=== PATIENT | female | born 1950 | race Caucasian/White ===

== ENCOUNTER → 2016-11-14 | Outpatient (CLI) | payer OTHER, BC ==
[~2016-11-14] MED LIST: CALC600T9 PO; MELA1TAB4 PO; METO-217 PO; MULT-506 PO
[2016-11-14 12:24] LABS: ALT/SGPT 22 U/L (12-78); AST/SGOT 19 U/L (15-37); BLOOD UREA NITROGEN 24 mg/dl (7-18); BUN/CREATININE RATIO 32.6 (10-20); CALCIUM 9.2 mg/dl (8.5-10.1); CARBON DIOXIDE 28 mmol/L (21-32); CHLORIDE 105 mmol/L (98-107); CHOLESTEROL 239 mg/dl (0-200); CREATININE 0.72 mg/dl (0.60-1.20); GLUCOSE 92 mg/dl (70-99); POTASSIUM 4.1 mmol/L (3.5-5.1); SODIUM 140 mmol/L (136-145); TRIGLYCERIDES 82 mg/dl (0-150); VERY LOW DENSITY LIPOPROT CALC 16 mg/dl
[2016-11-14 12:27] LABS: HEMATOCRIT 41.6 % (37-47); MEAN CELL VOLUME 96.7 fL (80-100); MEAN CORPUSCULAR HEMOGLOBIN 32.3 pg (25-34); MEAN CORPUSCULAR HGB CONC 33.4 g/dl (32-36); MEAN PLATELET VOLUME 10.9 fL (7.4-10.4); PLATELET COUNT 265 K/uL (130-400)
[2016-11-14 12:34] LABS: ALB/GLOB RATIO 1.1 (0.9-2); ALKALINE PHOSPHATASE 90 U/L (45-117); CHOLESTEROL/HDL RATIO 2.3; HDL CHOLESTEROL 102 mg/dl; LDL CHOLESTEROL CALCULATED 121 mg/dl
== END | disposition home or self-care (01) ==
LOC: C.LABBFT 09:11
PROVIDERS: ATTEND Internal Medicine
DX: I42.9 Cardiomyopathy, unspecified (principal)

== ENCOUNTER → 2016-12-26 | Day surgery (SDC) | payer OTHER, BC ==
[2016-12-19 14:46] VITALS: Ht 168.9 cm; Wt 65.9 kg
[~2016-12-26] VITALS: Ht 168.9 cm; Wt 65.9 kg
[~2016-12-26] MED LIST changes: +LIDOCAINE HCL 2% 2 ML VIAL (20MG/ML) ONE; +MIDAZOLAM HCL 1 MG/ML 2ML VIAL ONE; +ONDANSETRON INJ 2 MG/ML 2 ML VIAL ONE; +PROPOFOL IV EMULSION 10 MG/ML 20 ML VIAL IV ONE; +SODIUM CHLORIDE 0.9% 500ML 500 ML IV ONE
--- NOTE | 2016-12-26 14:50 | Endo History and Physical ---
History & Physical Date of Service: December 26, 2016. Chief Complaint: screening Referring Physician: Dr. Balderas History of Present Illness 66 yo CF who presents for screening colonoscopy. Past Surgical History Hx Cardiac Surgery: No Hx Internal Defibrillator: No Hx Pacemaker: No Hx Abdominal Surgery: Yes (JOSE BSO) Hx of Implantable Prosthesis: No Hx Post-Op Nausea and Vomiting: No Hx Cancer Surgery: No Hx Thoracic Surgery: No Hx Orthopedic: No Hx Urinary Tract Surgery: No Family History Colon CA Social History Smoking Status: Current Every Day Smoker Hx Substance Use: No Hx Alcohol Use: Yes (OCCASIONAL) Allergies Coded Allergies: No Known Allergies (Unverified , 12/26/16) Current Medications Reported Home Medications Medications Dose Route/Sig Max Daily Dose Days Date Category Dose Instructions Melatonin 1 Mg Tab 1 Tab PO HS PRN 12/19/16 Reported Calcium + D (Calcium Carbonate-Vitamin D) 1 Tab Tab 1 Tab PO BID 12/19/16 Reported Multivitamin (Multivitamins) Tab 1 Tab PO QAM 12/19/16 Reported Toprol Xl (Metoprolol Succinate) 50 Mg Tabcr 50 Mg PO QAM 12/19/16 Reported WILL BE GETTING NEW PRESCRIPTION FOR 75MG BUT PT STATES NOT STARTING UNTIL AFTER COLONOSCOPY Vital Signs Weight (Kilograms): 65.91 Height (Feet): 5 Height (Inches): 6.5 Physical Exam General Appearance: WD/WN, no apparent distress Respiratory/Chest: Auscultation: breath sounds normal Cardiovascular: Heart Auscultation: RRR Abdomen: Bowel Sounds: normal Inspection & Palpation: soft, non-distended, no tenderness, guarding & rebound Assessment and Plan Assessment: 66 yo CF who presents for screening colonoscopy. Plan: Proceed with colonoscopy.
--- NOTE | 2016-12-26 15:39 | Discharge Instructions ---
Endoscopy Patient Instructions Date / Procedure(s) Performed December 26, 2016. Colonoscopy Allergy Information Coded Allergies: No Known Allergies (Unverified , 12/26/16) Discharge Date / Findings December 26, 2016. Colon polyps Internal hemorrhoids Medication Instructions OK to resume all medications today as prescribed Reported Home Medications Medications Dose Route/Sig Max Daily Dose Days Date Category Dose Instructions Melatonin 1 Mg Tab 1 Tab PO HS PRN 12/19/16 Reported Calcium + D (Calcium Carbonate-Vitamin D) 1 Tab Tab 1 Tab PO BID 12/19/16 Reported Multivitamin (Multivitamins) Tab 1 Tab PO QAM 12/19/16 Reported Toprol Xl (Metoprolol Succinate) 50 Mg Tabcr 50 Mg PO QAM 12/19/16 Reported WILL BE GETTING NEW PRESCRIPTION FOR 75MG BUT PT STATES NOT STARTING UNTIL AFTER COLONOSCOPY Provider Instructions Activity Restrictions - No exercising or heavy lifting for 24 hours. - Do not drink alcohol the day of the procedure. - Do not drive a car or operate machinery until the day after the procedure. - Do not make any important decisions or sign important papers in 24 hours after the procedure. Following Day: - Return to full activity which may include returning to work/school. Diet Start your diet with liquids and light foods (jello, soup, juice, toast). Then eat your usual diet if not nauseated. Treatment For Common After Affects For mild abdominal pain, bloating, or excessive gas: - Rest - Eat lightly - Lie on right side Follow-Up Information Follow-up with Dr. Balderas as scheduled Anesthesia Information What You Should Know You have had a procedure that required some medicine to reduce anxiety and discomfort. This treatment is called moderate sedation. After receiving the treatment, you may be sleepy, but you will be able to breathe on your own. The effects of the treatment may last for several hours. Follow these instructions along with Activity/Diet recommendations noted above: * Do NOT do anything where dizziness or clumsiness would be dangerous. * Rest quietly at home today, then you can be up and about tomorrow. * Have a responsible person stay with you the rest of today. * You may have had an I.V. today. If so, you may take the dressing off later today. Recommendations Call your doctor if: * Trouble breathing * Continuous vomiting for more than 24 hours * Temperature above 101 degrees * Severe abdominal pain or bloating * Pain not relieved by pain medicine ordered * There is increased drainage or redness from any incision * A large amount of rectal bleeding greater than 2-3 tablespoons. (If you had a polyp/s removed or have hemorrhoids, a small amount of blood - from the rectum is to be expected.) * You have any unanswered questions or concerns. IN THE EVENT OF A SERIOUS EMERGENCY, GO TO THE NEAREST EMERGENCY ROOM Your discharge instructions were prepared by provider Miguel Gamez. Patient Instructions Signature Page Kanchan Lopez Patient (or Guardian) Signature/Date: I have read and understand the instructions given to me by my caregivers. Caregiver/RN/Doctor Signature/Date: The above-named patient and/or guardian has received patient instructions on this date. + Original Patient Signature Page (only) stays with chart. Please make copy for patient.
--- NOTE | 2016-12-26 15:46 | GI REPORT ---
Procedure Date: 12/26/2016 2:59 PM Procedure: Colonoscopy Indications: Screening for colorectal malignant neoplasm Medicines: Monitored Anesthesia Care Complications: No immediate complications. Estimated Blood Loss: Estimated blood loss: none. Procedure: Pre-Anesthesia Assessment: - Prior to the procedure, a History and Physical was performed, and patient medications and allergies were reviewed. The patient's tolerance of previous anesthesia was also reviewed. The risks and benefits of the procedure and the sedation options and risks were discussed with the patient. All questions were answered, and informed consent was obtained. Prior Anticoagulants: The patient has taken no previous anticoagulant or antiplatelet agents. ASA Grade Assessment: II - A patient with mild systemic disease. After reviewing the risks and benefits, the patient was deemed in satisfactory condition to undergo the procedure. After I obtained informed consent, the scope was passed under direct vision. Throughout the procedure, the patient's blood pressure, pulse, and oxygen saturations were monitored continuously. The Scope was introduced through the anus and advanced to the terminal ileum. The colonoscopy was technically difficult and complex due to post-surgical anatomy and restricted mobility of the colon. Successful completion of the procedure was aided by changing the patient to a supine position and applying abdominal pressure. The patient tolerated the procedure well. The quality of the bowel preparation was good. The terminal ileum, ileocecal valve, appendiceal orifice, and rectum were photographed. Findings: Five sessile polyps were found in the sigmoid colon, in the descending colon and in the ascending colon. The polyps were 5 to 8 mm in size. These polyps were removed with a hot snare. Resection and retrieval were complete. Non-bleeding internal hemorrhoids were found during retroflexion. The hemorrhoids were small. Impression: - Five 5 to 8 mm polyps in the sigmoid colon, in the descending colon and in the ascending colon, removed with a hot snare. Resected and retrieved. - Non-bleeding internal hemorrhoids. Recommendation: - Resume previous diet. - Continue present medications. - Repeat colonoscopy for surveillance based on pathology results. - Return to primary care physician as previously scheduled. Miguel Gamez DO 12/26/2016 3:46:32 PM This report has been signed electronically. Note Initiated On: 12/26/2016 2:59 PM I attest to the content of the Intraoperative Record and orders documented therein, exceptions below
[2016-12-26 16:13] VITALS: BP 114/62; PULSE 59; O2SAT 98
--- NOTE | 2016-12-26 16:48 | Anesthesiology Progress Note ---
Anesthesia Post Op Note Date & Time December 26, 2016 at 16:48 Vital Signs Pain Intensity: 0 Vital Signs Past 12 Hours Date Time Temp Pulse Resp B/P Pulse Ox O2 Delivery O2 Flow Rate FiO2 12/26/16 16:13 59 16 114/62 98 Room Air 12/26/16 15:53 59 16 129/59 98 Room Air 12/26/16 15:38 64 16 122/49 95 Room Air 12/26/16 14:48 36.9 65 20 160/75 96 Room Air Notes Mental Status: alert / awake / arousable, participated in evaluation Pt Amnestic to Procedure: Yes Nausea / Vomiting: adequately controlled Pain: adequately controlled Airway Patency, RR, SpO2: stable & adequate BP & HR: stable & adequate Hydration State: stable & adequate Anesthetic Complications: no major complications apparent
== END | disposition home or self-care (01) ==
LOC: C.GI 13:51
PROVIDERS: ATTEND Internal Medicine
DX: Z12.11 Encounter for screening for malignant neoplasm of colon (principal); D12.5 Benign neoplasm of sigmoid colon; D12.4 Benign neoplasm of descending colon; D12.2 Benign neoplasm of ascending colon; K64.8 Other hemorrhoids; E11.22 Type 2 diabetes mellitus with diabetic chronic kidney disease; I12.9 Hypertensive chronic kidney disease with stage 1 through stage 4 chronic kidney disease, or unspecified chronic kidney disease; F17.200 Nicotine dependence, unspecified, uncomplicated; Z80.0 Family history of malignant neoplasm of digestive organs; Z68.23 Body mass index [BMI] 23.0-23.9, adult; Z90.89 Acquired absence of other organs; N18.9 Chronic kidney disease, unspecified

== ENCOUNTER → 2017-02-09 | Outpatient (CLI) | payer OTHER, BC ==
[~2017-02-09] MED LIST changes: -LIDOCAINE HCL 2% 2 ML VIAL (20MG/ML) ONE; -MIDAZOLAM HCL 1 MG/ML 2ML VIAL ONE; -ONDANSETRON INJ 2 MG/ML 2 ML VIAL ONE; -PROPOFOL IV EMULSION 10 MG/ML 20 ML VIAL IV ONE; -SODIUM CHLORIDE 0.9% 500ML 500 ML IV ONE
--- NOTE | 2017-02-09 16:20 | MAMMOGRAPHY REPORT ---
BILATERAL DIGITAL SCREENING MAMMOGRAM TOMOSYNTHESIS WITH CAD: 02/09/2017 CLINICAL HISTORY: Routine screening. Patient has no complaints. TECHNIQUE: Breast tomosynthesis in addition to standard 2D mammography was performed. Current study was also evaluated with a Computer Aided Detection (CAD) system. COMPARISON: Comparison is made to exams dated: 02/03/2016 mammogram - [facility], mammogram, 10/07/2013 mammogram, 04/15/2013 mammogram, 10/12/2012 mammogram, and 10/03/2012 mammogr am - [facility]. BREAST COMPOSITION: The tissue of both breasts is heterogeneously dense, which may obscure small mas ses. FINDINGS: There are a few benign-appearing calcifications bilaterally. No new suspicious mass, archi tectural distortion or cluster of microcalcifications is seen. IMPRESSION: ACR BI-RADS CATEGORY 1: NEGATIVE There is no mammographic evidence of malignancy. A 1 year screening mammogram is recommended. The pa tient will receive written notification of the results. Approximately 10% of breast cancers are not detected with mammography. A negative mammographic report should not delay biopsy if a clinically suggestive mass is present. Bella Saravia M.D. ay/:02/09/2017 13:56:46 Valve Pipe Irrigator: Judy VAUGHN(Dami)(Nishant)(BD), [facility] letter sent: Normal 1/2 BI-RADS Code: ACR BI-RADS Category 1: Negative
== END | disposition home or self-care (01) ==
LOC: C.MAMM 09:01
PROVIDERS: ATTEND Internal Medicine
DX: Z12.31 Encounter for screening mammogram for malignant neoplasm of breast (principal)

== ENCOUNTER → 2017-11-16 | Outpatient (CLI) | payer OTHER, BC ==
[2017-11-16 12:35] LABS: HEMATOCRIT 41.5 % (37-47); MEAN CORPUSCULAR HEMOGLOBIN 33.4 pg (25-34); MEAN CORPUSCULAR HGB CONC 33.7 g/dl (32-36); PLATELET COUNT 285 K/uL (130-400); RED CELL DISTRIBUTION WIDTH SD 50.5 fL (36.4-46.3); WHITE BLOOD COUNT 10.86 K/uL (4.8-10.8)
[2017-11-16 13:32] LABS: ALBUMIN 4.1 gm/dl (3.4-5.0); ALT/SGPT 28 U/L (12-78); BLOOD UREA NITROGEN 23 mg/dl (7-18); CALCIUM 9.6 mg/dl (8.5-10.1); CARBON DIOXIDE 26 mmol/L (21-32); CHOLESTEROL 250 mg/dl (0-200); CREATININE 0.74 mg/dl (0.60-1.20); GLUCOSE 97 mg/dl (70-99); POTASSIUM 4.3 mmol/L (3.5-5.1); SODIUM 137 mmol/L (136-145)
[2017-11-16 13:42] LABS: ALKALINE PHOSPHATASE 85 U/L (45-117); AST/SGOT 21 U/L (15-37); LDL CHOLESTEROL CALCULATED 134 mg/dl; TOTAL PROTEIN 7.6 gm/dl (6.4-8.2)
== END | disposition home or self-care (01) ==
LOC: C.LABBFT 09:53
PROVIDERS: ATTEND Physician Assistant Medical
DX: I42.2 Other hypertrophic cardiomyopathy (principal)

== ENCOUNTER 2025-07-16 00:24 | Inpatient (IN) ==
--- NOTE | 2025-07-16 00:53 | Emergency Department Note ---
Impression & Plan Closed left humeral fracture Admission ED Provider Note HPI: History obtained from patient. The patient is a 75-year-old female who presents the emergency department with chief complaint of pain in her left shoulder after a fall earlier this evening. Patient states that she was drinking some alcohol earlier this evening and she went into her bathroom in [facility] and slipped backwards and fell onto her left arm. Patient denies hitting her head, she states that she does have pain in left shoulder on arrival. Patient is noted to have an arm sling on the right side, she states she actually had a fall just around [facility] and fractured the proximal aspect of her right humerus. On arrival here to the ED the patient is alert, she is intoxicated but answers my questions appropriately. She otherwise appears to be in no acute distress. ROS: - Per HPI Differential Diagnosis: Left shoulder dislocation, humerus fracture, scapular fracture, clavicle fracture, AC joint separation, rib fractures, pneumothorax, amongst other potential pathologies. *Outpatient medications and allergy history reviewed. PE: General: Alert, intoxicated, no acute distress HEENT: Normocephalic, trachea midline Eyes: Extraocular eye movement is intact, no scleral erythema Pulmonary: Clear to auscultation bilaterally, no wheezing Cardio: Regular rate and rhythm GI: Abdomen is soft to palpation : No suprapubic tenderness MSK: There is no range of motion of the left shoulder secondary to pain, otherwise no evidence of trauma or malformation of the extremities, no edema Skin: No evidence of rash Neuro: Alert, no focal deficits Psychiatric: Intoxicated, overall cooperative INDEPENDENT INTERPRETATIONS: monitoring and evaluation advisor: (As interpreted by myself): - An order was placed for continuous cardiac monitoring - Patient was noted to be in sinus rhythm with a rate of 72 Chest x-ray: (As interpreted by myself): No acute disease Interventions provided in ED: - IV fluid bolus Medical Decision Making: X-ray imaging of the left shoulder confirms evidence of a displaced transverse fracture of the proximal left humerus. Patient already has a fracture of her right humerus and is in an arm sling. She is at [facility]. I discussed the patient's presentation and fracture with on-call orthopedics, Berlin Uriarte PA-C, he does recommend admission as the patient will require operative repair. IV was established and the patient was given IV fluids, lab work was obtained that shows evidence of a leukocytosis which is likely reactive, otherwise hemoglobin is stable, platelet count is normal, CMP does not show any evidence of any critical findings. Patient is in agreement for admission, [facility] hospitalist service was consulted for admission and the patient was placed for admission in stable condition. Consultants/Discussions held with other healthcare providers: - Orthopedics, Dr. Arias/Berlin Uriarte PA-C - Hospitalist, Dr. Horan Disposition discussion held by myself with: - Patient Diagnosis: 1. Transverse fracture of the proximal left humerus, acute 2. Mechanical fall, acute 3. Right proximal humerus fracture, subacute 4. Alcohol intoxication, acute Disposition: Admission Don Collado DO Emergency Medicine Past Med/Surg History Problem List (Updated 07/16/25 @ 03:03 by Don Collado DO) Closed left humeral fracture (Acute) Closed fracture of right proximal humerus (07/01/25) Pt notes she caught her foot on something and fell in the parking lot causing injury to her right shoulder. Fracture of greater tuberosity of right humerus (07/01/25) Pt notes she caught her foot on something and fell in the parking lot causing injury to her right shoulder. Osteoporosis Cigarette smoker History of foot fracture (09/13/21) mildly displaced fracture of the base of the first metatarsal, left foot Hyperlipidemia Hypertension Arteriosclerosis of carotid artery (Acute) Cardiomyopathy, hypertrophic (Acute) Colon polyps (Acute) Internal hemorrhoids (Acute) Mitral regurgitation (Acute) Murmur (Acute) Surgical History History of colonoscopy History of hysterectomy Family History (Updated 05/31/24 @ 09:27 by Marylin Stallings) Mother Breast cancer Cerebral atherosclerosis Unknown Bipolar I disorder, single manic episode, severe with psychotic features Bipolar disorder Depression Brother Suicide Father Suicide Denies family history of Ovarian cancer Prostate cancer Coronary heart disease Myocardial infarction Colorectal cancer Social History (Updated 05/31/24 @ 09:29 by Marylin Stallings) Smoking Status: Current every day smoker Tobacco Type: Cigarettes Age Started Using Tobacco: 19; packs per day: 0.5; Cigarettes Per Day: 10; Second Hand Exposure: Yes; Do You Dip or Chew Tobacco: No; Hx Alcohol Use: Yes Alcohol type: beer and other Alcohol Intake Frequency: 4 or More x per/Week Hx Substance Use: No Preferred Language: Singaporean Visual Impairment: No Limitations Hearing Ability: Normal Biztalk Software Developer Required: No Beliefs That Will Affect Care: None marital status: / Current Living Situation: Alone current occupational status: retired Feels Safe at Home: Yes Diet: regular caffeine: Yes (1/2 c. coffee daily) during the past year weight has: remained stable Dental Care, Regularly: Yes Physical Activity Frequency: Daily Physical Activity Frequency Comment: walk Seatbelt Use: always Sunscreen Use: Yes Assistive Devices: Glasses Allergies Allergies Allergy/AdvReac Type Severity Reaction Status Date / Time No Known Drug Allergies Allergy Unknown Verified 07/16/25 01:44 Home Meds Home Medications Medication Instructions Recorded Confirmed [id number] 8 mg-folic 400 1 tab PO DAILY 02/14/19 07/16/25 mcg-K 50 mcg-lutein 300 mcg tablet (Centrum Silver Women) ascorbate calcium (vitamin C) 500 500 mg PO DAILY 01/07/20 07/16/25 mg tablet calcium carbonate 1,000 mg PO DAILY 01/07/20 07/16/25 melatonin 1 mg tablet 1 mg PO HS 01/05/21 07/16/25 Previous Rx's Medication Instructions Recorded metoprolol succinate 100 mg 100 mg PO DAILY #90 tabs 12/03/24 tablet,extended release 24 hr atorvastatin 20 mg tablet 20 mg PO DAILY #90 tabs 02/24/25 amlodipine 5 mg tablet 5 mg PO DAILY #90 tabs 02/25/25 Results & Data (ED) Vital Signs Vital Signs - 24 hr 07/16/25 00:30 07/16/25 01:30 07/16/25 02:57 Temperature 36.6 C Temperature Source Oral Pulse Rate 66 67 Pulse Rate [Apical] 70 Respiratory Rate 16 16 16 Blood Pressure 147/68 H Blood Pressure [Left Arm] 137/63 Blood Pressure Mean 94 Blood Pressure Mean [Left Arm] 87 Pulse Oximetry 96 94 93 Oxygen Delivery Method Room Air Room Air Room Air Sepsis Recent Fever Within 48 Hours No Sepsis New/Unexplained Change in Mental Status No Sepsis Action Taken by Nursing No Action Required Laboratory Data 07/16/25 01:22 07/16/25 01:22 Lab Results 07/16/25 Range/Units 01:22 WBC 18.10 H (4.8-10.8) K/ul RBC 3.27 L (4.20-5.40) M/uL Hgb 11.0 L (12.0-16.0) g/dL Hct 32.1 L (37.0-47.0) % MCV 98.2 (80.0-100.0) fL MCH 33.6 (25.0-34.0) pg MCHC 34.3 (32.0-36.0) g/dL RDW Std Deviation 46.3 (36.4-46.3) fL RDW Coeff of Tanya 13.0 (11.5-14.5) % Plt Count 365 (130-400) K/uL MPV 9.9 (9.4-12.4) fL Immature Gran % (Auto) 0.5 % Neut % (Auto) 85.0 % Lymph % (Auto) 8.6 % Garfield % (Auto) 4.9 % Eos % (Auto) 0.6 % Baso % (Auto) 0.4 % Neut # (Auto) 15.38 H (1.40-6.50) K/uL Lymph # (Auto) 1.56 (1.20-3.40) K/uL Garfield # (Auto) 0.88 H (0.11-0.59) K/uL Eos # (Auto) 0.11 (0.00-0.50) K/uL Baso # (Auto) 0.08 (0.00-0.20) K/uL Immature Gran # (Auto) 0.09 (0.01-0.20) K/uL PT 10.2 (9.0-12.0) Seconds INR 1.0 (0.9-1.1) Sodium 139 (136-145) mmol/L Potassium 3.3 L (3.5-5.1) mmol/L Chloride 104 (98-107) mmol/L Carbon Dioxide 22 (21-32) mmol/L Anion Gap 13 H (3-11) BUN 21 (6-23) mg/dl Creatinine 0.62 (0.6-1.2) mg/dl Est Cr Clr Drug Dosing 74.5 ml/min eGFR 93.39 BUN/Creatinine Ratio 33.9 H (10-20) Glucose 116 H (70-99(Fasting)) mg/dl Calcium 9.7 (8.6-10.3) mg/dl Total Bilirubin 0.3 (0.2-1.0) mg/dl AST 20 (13-39) U/L ALT 14 (7-52) U/L Alkaline Phosphatase 66 (34-104) U/L Total Protein 6.7 (6.0-8.3) gm/dl Albumin 4.0 (3.4-5.0) gm/dl Globulin 2.7 (2.5-4.0) gm/dl Albumin/Globulin Ratio 1.5 (0.9-2) Administered Medications Discontinued Medications Sodium Chloride (Nss) 1,000 mls @ 999 mls/hr IV .Q1H1M STA Stop: 07/16/25 02:22 Last Admin: 07/16/25 01:39 Dose: 999 mls/hr Documented By: sari Imaging Data Radiologist's Impression: Shoulder X-Ray 07/16/25 00:45 EXAM: XR shoulder LT min 2V routine CLINICAL HISTORY: shoulder pain TECHNIQUE: X-ray images of the left shoulder were obtained in anteroposterior (AP) and Y-view projections. COMPARISON: No prior studies available for comparison. FINDINGS: Bone Structure: Displaced fracture of the surgical neck of the humerus with associated non-displaced fracture of the greater tuberosity. Joint Spaces: Glenohumeral and acromioclavicular joint spaces are normal. Possible mild glenohumeral joint effusion. Soft Tissues: Soft tissue edema of the tissues overlying the fracture. Additional Findings: No signs of osteoarthritis, bone spurs, lytic or sclerotic lesions. IMPRESSION: Displaced fracture of the surgical neck of the humerus with associated non-displaced fracture of the greater tuberosity. (3-part fracture according to Neer classification). Soft tissue edema of the tissues overlying the fracture. Possible mild glenohumeral joint effusion. Disclaimer: A subtle bone abnormality or fracture may not be readily apparent on X-rays; thus, clinical correlation and further imaging, including follow-up CT, MRI, or follow-up X-rays, are advised as needed. Electronically signed by Yfn Perez 07-16-2025 01:59 AM Discharge Plan Visit Data Chief Complaint: Shoulder Pain Stated Complaint: L SHOULDER PAIN +ETOH ED Provider: Don Collado Discharge Problem: Closed left humeral fracture Patient Disposition: Admitted As Inpatient Condition: Fair Forms Stand Alone Forms: [facility] [place] Prescriptions Prescriptions: No Action metoprolol succinate 100 mg tablet extended release 24 hr 100 mg PO DAILY Qty: 90 3RF atorvastatin 20 mg tablet 20 mg PO DAILY Qty: 90 3RF amlodipine 5 mg tablet 5 mg PO DAILY Qty: 90 3RF calcium carbonate 500 mg calcium (1,250 mg) tablet 1,000 mg PO DAILY Centrum Silver Women 8 mg iron-400 mcg-300 mcg tablet 1 tab PO DAILY ascorbate calcium (vitamin C) 500 mg tablet 500 mg PO DAILY melatonin 1 mg tablet 1 mg PO HS Referrals Referrals: Daiana Razo MD [Primary Care Provider] - Discharge Problem: Closed left humeral fracture Qualifiers: Encounter type: initial encounter Humerus Location: proximal Fracture morphology: unspecified fracture morphology Qualified Code(s): S42.202A - Unspecified fracture of upper end of left humerus, initial encounter for closed fracture
[2025-07-16] MEDS: SODIUM CHLORIDE 0.9% 1,000 ML IV STA (01:39)
[2025-07-16 01:59] LABS: Hematocrit (blood only) 32.1 % (37.0-47.0); Hemoglobin 11.0 g/dL (12.0-16.0); Immature Granulocytes # (auto) 0.09 K/uL (0.01-0.20); Immature Granulocytes % (auto) 0.5 %; Mean Corpuscular Hemoglobin 33.6 pg (25.0-34.0); Mean Corpuscular Volume 98.2 fL (80.0-100.0); Platelet Count 365 K/uL (130-400); RDW Standard Deviation 46.3 fL (36.4-46.3); Red Blood Count 3.27 M/uL (4.20-5.40); White Blood Count 18.10 K/ul (4.8-10.8)
--- NOTE | 2025-07-16 01:59 | XRay Report ---
EXAM: XR shoulder LT min 2V routine CLINICAL HISTORY: shoulder pain TECHNIQUE: X-ray images of the left shoulder were obtained in anteroposterior (AP) and Y-view projections. COMPARISON: No prior studies available for comparison. FINDINGS: Bone Structure: Displaced fracture of the surgical neck of the humerus with associated non-displaced fracture of the greater tuberosity. Joint Spaces: Glenohumeral and acromioclavicular joint spaces are normal. Possible mild glenohumeral joint effusion. Soft Tissues: Soft tissue edema of the tissues overlying the fracture. Additional Findings: No signs of osteoarthritis, bone spurs, lytic or sclerotic lesions. IMPRESSION: Displaced fracture of the surgical neck of the humerus with associated non-displaced fracture of the greater tuberosity. (3-part fracture according to Neer classification). Soft tissue edema of the tissues overlying the fracture. Possible mild glenohumeral joint effusion. Disclaimer: A subtle bone abnormality or fracture may not be readily apparent on X-rays; thus, clinical correlation and further imaging, including follow-up CT, MRI, or follow-up X-rays, are advised as needed. Electronically signed by Yfn Perez 07-16-2025 01:59 AM
[2025-07-16 02:17] LABS: Alanine Aminotransferase 14.0 U/L (7-52); Albumin Globulin Ratio 1.5 (0.9-2); Albumin Level 4.0 gm/dl (3.4-5.0); Alkaline Phosphatase 66.0 U/L (34-104); Anion Gap 13.0 (3-11); Bilirubin,Total 0.3 mg/dl (0.2-1.0); Blood Urea Nitrogen 21.0 mg/dl (6-23); Calcium 9.7 mg/dl (8.6-10.3); Carbon Dioxide 22.0 mmol/L (21-32); Chloride 104.0 mmol/L (98-107); Creatinine Clr Calc Pharmacy 74.5 ml/min; Globulin 2.7 gm/dl (2.5-4.0); Glucose 116.0 mg/dl (70-99(Fasting)); Potassium 3.3 mmol/L (3.5-5.1); Sodium 139.0 mmol/L (136-145); Total Protein 6.7 gm/dl (6.0-8.3)
[2025-07-16 02:31] LABS: INR 1.0 (0.9-1.1); Prothrombin Time 10.2 Seconds (9.0-12.0)
--- NOTE | 2025-07-16 03:23 | History & Physical Report ---
Date of Service July 16, 2025 Assessment & Plan (1) Closed left humeral fracture: (2) Alcohol use: (3) Hypokalemia: (4) Leukocytosis: (5) Anemia: Plan 75-year-old female PMHx closed fx of R proximal humerus and greater tuberosity of humerus (07/01/2025), OP, HLD, HTN, HCM, and MR presenting for fall and associated L shoulder pain occurring the day of arrival. Her evaluation does reveal leukocytosis 18k, with hypokalemia (3.3) and AG of 13. Her imaging is significant for L sided fracture of greater tuberosity of humerus with possible joint effusion. #L humerus fracture Mechanical fall the day of arrival, landed on L shoulder. Reports that she had been drinking alcohol. H/o OP, with prior fractures in chart. - CBC leukocytosis 18k, H/H 11.0/32.1, plt stable; PT/INR WNL; vitamin D level pending - EKG pending - CXR pending official read - L shoulder XR nondisplaced fracture of greater tuberosity of humerus with possible glenohumeral joint effusion - NPO now - IVF LR @ 80 mL/hr - Zofran prn N/V - Acetaminophen prn fever/pain, morphine prn severe pain - Ortho consulted - appreciate input + recs - PT/OT consulted - appreciate assistance #Alcohol use Reports drinking 1 "small glass" of scotch per night, mainly every night. Neighbor arrival she did have 2 small glasses which were mixed with water and ice. No history of withdrawals. PAWS score currently 0 (pending alcohol level). - AG 13, LFTs WNL, alcohol level pending - AWSS at admission, can discontinue as appropriate - Thiamine 100 mg IV + folate 1 mg IV am - Ativan as ordered, as needed #Hypokalemia Asx at present. - K 3.3, Mg 2 - BMP am - KCl 20 mEq IV now - EKG pending #Leukocytosis No infectious symptoms at present; Denies cough, F/c, URI sx, LUTS, N/V/D. - CBC leukocytosis 18.1, elevated neutrophils - CBC am - CXR pending official read - UA pending - Deferred abx at time of admission - no clear source of infection, ? inflammatory response to fracture/stress in body #Anemia Slightly decreased H/H from baseline; pt denies active bleeding. She is clinically dry, could be concentration issue vs sergio anemia. H/o alcohol ingestion, routinely. - H/H . - trend as appropriate - Iron panel, ferritin, vitamin B12, folate pending #Nicotine dependence- Has cut back significantly, smokes approximately 3 to 4 cigarettes/day with meals. Encouraged sensation, which the patient is interested in - nicotine patch prn #HTN- Amlodipine, metoprolol - continue #HLD- Atorvastatin - continue Dispo: Admit, med/sx VTE Prophylaxis: SCDs This document was dictated utilizing [employer]. Please excuse any grammatical errors that may be secondary to use of this software. Admission and Anticipated Discharge Date Admission Date: 07/16/2025 History of Present Illness Chief Complaint: Shoulder pain Primary Care Provider: Daiana Razo MD 75-year-old female PMHx closed fx of R proximal humerus and greater tuberosity of humerus (07/01/2025), OP, HLD, HTN, HCM, and MR presenting for fall and associated L shoulder pain occurring the day of arrival. Patient states that around the time of she was with her [id number] when they were outside walking and she tripped off of a curb while it was raining, landing on her right arm and sustaining a fracture. She was then sent to [facility] for rehabilitation but she is right-hand dominant and needed assistance given her injury. While at [facility], she has been having approximately 1 glass of liquor per night. The night of arrival, around [id number], she had finished 2 glasses of scotch mixed with water (she holds up her hand to demonstrate small glasses that resemble the size of shot glasses). She got up with only her socks on and walked to the bathroom when she then slipped on the vinyl floor and fell onto her left side, falling backwards. She did not hit her head. Not on blood thinners. At present, the pain in her L arm is a 5 out of 10 on the pain scale, but manageable. She is not having any numbness or tingling, no shooting pain elsewhere. She denies any symptoms prior to the fall to include chest pain, dizziness, SOB, or syncope. She admits to drinking almost nightly, around a shot glass amount of liquor mixed with water. Denies blackouts, history of withdrawals, seizures, or inpatient treatment for alcohol use. She does smoke cigarettes, approximately 3-4/day. She has been having more stressors recently as she has been a since 2013, and her mother just recently passed in June at the age of 103 years old. Patient states that there have just been changes in her life that she is dealing with and she was feeling sad the night of arrival which is why she had 2 glasses of alcohol instead of 1. She denies any chest pain, SOB, palpitations, abdominal pain, N/V/D/C, numbness/tingling, fever/chills, URI symptoms, LUTS, weakness, or syncope. Her RUE has been healing appropriately, she states that the pain in this arm is manageable. ED evaluation reveals CBC with leukocytosis 18.10, H/H 11.0/32.1, plt stable; PT/INR WNL; CMP K 3.3, AG 13, ratio 33.9, glucose 116; L shoulder XR displaced fracture of surgical neck of humerus with associated non-displaced fx greater tuberosity, soft tissue edema overlying fx, possible glenohumeral joint effusion; CXR pending official read.; Provided with 1L NSS in ED. Please see Dr. Horan attestation for adjustments/additions to treatment plan. Allergies Allergy/AdvReac Type Severity Reaction Status Date / Time No Known Drug Allergies Allergy Unknown Verified 07/16/25 01:44 Home Medications Medication Instructions Recorded Confirmed Type [id number] 8 mg-folic 400 1 tab PO DAILY 02/14/19 07/16/25 History mcg-K 50 mcg-lutein 300 mcg tablet (Centrum [place]) ascorbate calcium (vitamin C) 500 500 mg PO DAILY 01/07/20 07/16/25 History mg tablet calcium carbonate 1,000 mg PO DAILY 01/07/20 07/16/25 History melatonin 1 mg tablet 1 mg PO HS 01/05/21 07/16/25 History metoprolol succinate 100 mg 100 mg PO DAILY #90 tabs 12/03/24 07/16/25 Rx tablet,extended release 24 hr atorvastatin 20 mg tablet 20 mg PO DAILY #90 tabs 02/24/25 07/16/25 Rx amlodipine 5 mg tablet 5 mg PO DAILY #90 tabs 02/25/25 07/16/25 Rx Past Med/Surg History Problem List (Updated 07/16/25 @ 08:04 by Al Moralez LPN) Anemia Leukocytosis Hypokalemia Alcohol use Closed left humeral fracture (Acute 07/15/25) Displaced fracture of the surgical neck of the left humerus with associated non-displaced fracture of the greater tuberosity from a fall. Closed fracture of right proximal humerus (07/01/25) Pt notes she caught her foot on something and fell in the parking lot causing injury to her right shoulder. Fracture of greater tuberosity of right humerus (07/01/25) Pt notes she caught her foot on something and fell in the parking lot causing injury to her right shoulder. Osteoporosis Cigarette smoker History of foot fracture (09/13/21) mildly displaced fracture of the base of the first metatarsal, left foot Hyperlipidemia Hypertension Arteriosclerosis of carotid artery (Acute) Cardiomyopathy, hypertrophic (Acute) Colon polyps (Acute) Internal hemorrhoids (Acute) Mitral regurgitation (Acute) Murmur (Acute) Surgical History History of colonoscopy History of hysterectomy Family History Mother Breast cancer Cerebral atherosclerosis Unknown Bipolar I disorder, single manic episode, severe with psychotic features Bipolar disorder Depression Brother Suicide Father Suicide Denies family history of Ovarian cancer Prostate cancer Coronary heart disease Myocardial infarction Colorectal cancer Social History Smoking Status: Current every day smoker Tobacco Type: Cigarettes Age Started Using Tobacco: 19; packs per day: 0.5; Cigarettes Per Day: 3; Second Hand Exposure: No; Do You Dip or Chew Tobacco: No; Tobacco Cessation Education Requested by Patient: No Hx Alcohol Use: Yes Alcohol type: hard liquor Alcohol Intake Frequency: 4 or More x per/Week Hx Substance Use: No Preferred Language: Surinamese Communication Ability: Effective Visual Impairment: No Limitations Hearing Ability: Normal [employer] Required: No Beliefs That Will Affect Care: None marital status: / Current Living Situation: Alone current occupational status: retired Other Information That Helps Us Care for You: No Feels Safe at Home: Yes Safety Concerns: Feels Safe At This Time Diet: regular caffeine: Yes (1/2 c. coffee daily) during the past year weight has: remained stable Dental Care, Regularly: Yes Physical Activity Frequency: Daily Physical Activity Frequency Comment: walk Seatbelt Use: always Sunscreen Use: Yes Assistive Devices: Denture - Upper and Glasses Assistive Devices Comment: Upper partial Review of Systems Review of Systems: All systems reviewed & are unremarkable except as noted in Subjective Physical Exam Physical Exam: General: No acute distress Skin: Warm and dry Head: Normocephalic, atraumatic Eyes: PERRL, conjunctivae clear, sclera non-icteric; wearing glasses ENT: External ear and ear canal without swelling; nose atraumatic; good dentition, tongue normal appearance, pharynx normal Neck: Supple, no LAD Cardio: RRR, no M/G/R, S1 and S2 normal Resp: No respiratory distress, Lungs CTA in all lobes bilaterally, no wheezes, rales, or rhonchi Abdomen: Soft, symmetric, nontender; No masses or hepatosplenomegaly; Bowel sounds normoactive MSK: RUE in sling, appropriate ROM; LUE resting at side, limited ROM,; pulses palpable and equal; no edema. Neuro: Awake, alert; Sensation intact bilaterally; CN grossly intact Psych: Appropriate mood and affect; good judgement and insight. Results & Data Results & Data Vital Signs (Past 12 Hours) Vital Signs Temp Pulse Pulse Resp BP BP Pulse Ox 07/16/25 02:57 70 16 137/63 93 07/16/25 01:30 67 16 94 07/16/25 00:30 36.6 C 66 16 147/68 H 96 O2 Del Method 07/16/25 02:57 Room Air 07/16/25 01:30 Room Air 07/16/25 00:30 Room Air Laboratory Results 07/16/25 01:22 WBC 18.10 H RBC 3.27 L Hgb 11.0 L Hct 32.1 L MCV 98.2 MCH 33.6 MCHC 34.3 RDW Std Deviation 46.3 RDW Coeff of Tanya 13.0 Plt Count 365 MPV 9.9 Immature Gran % (Auto) 0.5 Neut % (Auto) 85.0 Lymph % (Auto) 8.6 Mitchell % (Auto) 4.9 Eos % (Auto) 0.6 Baso % (Auto) 0.4 Neut # (Auto) 15.38 H Lymph # (Auto) 1.56 Mitchell # (Auto) 0.88 H Eos # (Auto) 0.11 Baso # (Auto) 0.08 Immature Gran # (Auto) 0.09 PT 10.2 INR 1.0 Sodium 139 Potassium 3.3 L Chloride 104 Carbon Dioxide 22 Anion Gap 13 H BUN 21 Creatinine 0.62 Est Cr Clr Drug Dosing 74.5 eGFR 93.39 BUN/Creatinine Ratio 33.9 H Glucose 116 H Calcium 9.7 Total Bilirubin 0.3 AST 20 ALT 14 Alkaline Phosphatase 66 Total Protein 6.7 Albumin 4.0 Globulin 2.7 Albumin/Globulin Ratio 1.5 Diagnostic Findings Shoulder X-Ray 07/16/25 00:45 EXAM: XR shoulder LT min 2V routine CLINICAL HISTORY: shoulder pain TECHNIQUE: X-ray images of the left shoulder were obtained in anteroposterior (AP) and Y-view projections. COMPARISON: No prior studies available for comparison. FINDINGS: Bone Structure: Displaced fracture of the surgical neck of the humerus with associated non-displaced fracture of the greater tuberosity. Joint Spaces: Glenohumeral and acromioclavicular joint spaces are normal. Possible mild glenohumeral joint effusion. Soft Tissues: Soft tissue edema of the tissues overlying the fracture. Additional Findings: No signs of osteoarthritis, bone spurs, lytic or sclerotic lesions. IMPRESSION: Displaced fracture of the surgical neck of the humerus with associated non-displaced fracture of the greater tuberosity. (3-part fracture according to Neer classification). Soft tissue edema of the tissues overlying the fracture. Possible mild glenohumeral joint effusion. Disclaimer: A subtle bone abnormality or fracture may not be readily apparent on X-rays; thus, clinical correlation and further imaging, including follow-up CT, MRI, or follow-up X-rays, are advised as needed. Electronically signed by Yfn Perez 07-16-2025 01:59 AM Medications Administered 1l NSS Code Status & VTE Plan Code Status Full Supervising Physician Co-Signing Physician Notes Attending addendum: I have physically seen this patient, have supervised the ANITA's activities, and agree with the H&P unless as otherwise noted. Assessment and Plan: The patient is a 75-year-old female with past medical history including closed fracture of right proximal humerus and greater tuberosity on 07/01/2025, OP, hyperlipidemia, hypertension, HCM, and MRI. She presents to the emergency dep artment after a fall, injuring her left shoulder, with x-ray showing a closed proximal left humeral fracture. Closed left proximal humerus fracture- Status post mechanical fall NPO LR at 80 mL/h Zofran 4 mg IV every 6 hours as needed Acetaminophen 1 g IV every 8 hours as needed for mild pain or fever Morphine sulfate 4 mg IV every 6 hours as needed for moderate to severe pain Consult orthopedic surgery Alcohol use- Patient reports drinking a small glass of scotch every night. She did have 2 small glasses mixed with water and ice this evening before falling Anion gap 13, LFTs normal, alcohol level pending AWSS ordered at admission with IV Ativan Thiamine 100 mg IV and folate 1 mg IV every morning Hypokalemia- Potassium 3.3 on admission with magnesium 2.2 Give potassium chloride 20 mill equivalents IV now, recheck laboratories in the a.m. Hypertension- Continue amlodipine and metoprolol with hold parameters Remaining orders and notations as noted PG Care Time/CCT Total # of Minutes Spent Total Time Spent with Patient: Total time spent is greater than 50% in coordination of care (as documented) at patient's floor/unit and/or counseling patient: Coding Level of Care Code 22165 INT INP/OBS CARE MIN Diagnoses Closed left humeral fracture Encounter type: initial encounter Fracture morphology: unspecified fracture morphology Humerus Location: proximal Alcohol use F10.90 Hypokalemia E87.6 Leukocytosis D72.829 Anemia D64.9 (1) Closed left humeral fracture Encounter type: initial encounter Fracture morphology: unspecified fracture morphology Humerus Location: proximal Qualified Code(s): S42. - Unspecified fracture of upper end of left humerus, initial encounter for closed fracture
[2025-07-16 04:11] LABS: Magnesium 2.0 mg/dl (1.7-2.4)
[2025-07-16] MEDS ORDERED: ONDANSETRON INJ 2 MG/ML 2 ML VIAL IV PRN (04:15)
[2025-07-16] MEDS ORDERED: POLYETHYLENE (MIRALAX) 17 GM PACK PO PRN (04:15)
[2025-07-16] MEDS ORDERED: LORazepam Inj 1 MG in SYRINGE 0.5 ML IV PRN (04:17)
[2025-07-16] MEDS ORDERED: MoRPHine SULFATE 2 MG/ML CARP IV PRN (04:17)
[2025-07-16] MEDS: LACTATED RINGER'S 1,000 ML IV SCH (04:52)
[2025-07-16] MEDS: POTASSIUM CHLORIDE / WTR 10 MEQ/100 ML PLCT IV SCH (04:53)
[2025-07-16 05:07] LABS: Appearance Urine Clear (Clear); Bacteria Urine Automated None Seen (None Seen); Cast Urine Automated 0-2 /lpf (0-2); Epithelial Cell Urine Auto 0-2 /hpf (0-2); Glucose Urine UA Negative (Negative); RBC Urine Automated 0-2 /hpf (0-2); WBC Urine Automated 0-5 /hpf (0-5)
--- NOTE | 2025-07-16 05:50 | XRay Report ---
EXAM: XR chest 1V portable CLINICAL HISTORY: Fall. TECHNIQUE: An X-ray image of the chest was obtained in AP projection. The patient was rotated. COMPARISON: Prior X-ray of the left shoulder dated 07/15/2025 was reviewed. Prior X-ray of the right shoulder dated 07/01/2025 was reviewed. FINDINGS: Pulmonary Parenchyma: Obscuration of the left lower lung zone by the enlarged cardiac silhouette. Lungs are clear bilaterally. No evidence of consolidation, collapse, or focal opacities. No pulmonary nodules are identified. No evidence of pleural effusion or pleural thickening. Heart and Mediastinum: Cardiomegaly. No mediastinal widening or masses. No hilar or mediastinal lymphadenopathy. Bony Thorax: The bony thorax appears intact without fractures or deformities. The partially visualized right shoulder demonstrates an age-indeterminate fracture of the right humeral neck, as previously noted on the prior right shoulder study dated 07/01/2025. Left Shoulder (as seen on the included field): Redemonstration of a displaced fracture of the surgical neck of the left humerus with an associated non-displaced greater tuberosity fracture. There is associated soft tissue edema. Soft Tissues: Soft tissues overlying the chest wall are unremarkable. IMPRESSION: 1. No acute cardiopulmonary abnormality. 2. Bony thorax appears intact without fractures. 3. Cardiomegaly. 4. Redemonstration of a displaced surgical neck humeral fracture. 5. Partially visualized right shoulder shows an age-indeterminate right humeral neck fracture, as noted on the prior study dated 07/01/2025. Electronically signed by Yfn Perez 07-16-2025 05:50 AM
--- NOTE | 2025-07-16 09:20 | Orthopedic Consultation ---
Date of Service July 16, 2025 Assessment & Plan (1) Closed left humeral fracture: (2) Closed fracture of right proximal humerus: Plan * Case/imaging reviewed and discussed with Dr Land * Right proximal humerus fracture - continue close management, maintain sling, NWB RUE * Left proximal humerus fracture - Recommend OR fixation - CT pending for OR planning - Tentative OR 07/16 versus 07/17 pending surgeon availability - Maintain n.p.o. for now * Weight bearing status: NWB bilateral upper extremity * Sling for comfort * Daily treatment: Physical Therapy/ Occupational Therapy per protocol * Pain control * Disposition: TBD, anticipate return to assisted living facility * Remainder care per primary team * Will continue to follow History of Present Illness Reason for Consultation: Left shoulder pain Requesting Physician: . Attending Physician: Kemar Mcmahon MD .Patient is a 75y/o female with left shoulder pain. PMH including HLD, HTN, hypertrophic cardiomyopathy, mitral regurgitation. Also with recent right proximal humerus fracture suffered approximately 2 weeks ago, undergoing closed treatment. Presents to hospital with left shoulder pain after a fall at assisted living facility. Patient states that she was walking through her bathroom when she slipped and fell, trying to protect her right shoulder she put her left arm out and ended up injuring the left shoulder as well. Brought to ED for evaluation. Current workup including x-ray left shoulder demonstrating displaced proximal humerus fracture. Admitted to hospital medicine team, orthopedics consulted for management recommendations. At time of exam patient sitting in bed, no acute distress. Sling to right arm, no sling to left arm. Reports moderate pain of the left shoulder that increases with attempted movement. Denies tingling numbness of the left upper extremity. Patient is right-handed. Currently residing in assisted living facility secondary to her right humerus fracture. Allergies Allergy/AdvReac Type Severity Reaction Status Date / Time No Known Drug Allergies Allergy Unknown Verified 07/16/25 01:44 Home Medications Medication Instructions Recorded Confirmed Type rxtazkbz-ahqk-jhqo 8 mg-folic 400 1 tab PO DAILY 02/14/19 07/16/25 History mcg-K 50 mcg-lutein 300 mcg tablet (Centrum Silver Women) ascorbate calcium (vitamin C) 500 500 mg PO DAILY 01/07/20 07/16/25 History mg tablet calcium carbonate 1,000 mg PO DAILY 01/07/20 07/16/25 History melatonin 1 mg tablet 1 mg PO HS 01/05/21 07/16/25 History metoprolol succinate 100 mg 100 mg PO DAILY #90 tabs 12/03/24 07/16/25 Rx tablet,extended release 24 hr atorvastatin 20 mg tablet 20 mg PO DAILY #90 tabs 02/24/25 07/16/25 Rx amlodipine 5 mg tablet 5 mg PO DAILY #90 tabs 02/25/25 07/16/25 Rx Past Med/Surg History Problem List (Updated 07/16/25 @ 08:04 by Al Moralez LPN) Anemia Leukocytosis Hypokalemia Alcohol use Closed left humeral fracture (Acute 07/15/25) Displaced fracture of the surgical neck of the left humerus with associated non-displaced fracture of the greater tuberosity from a fall. Closed fracture of right proximal humerus (07/01/25) Pt notes she caught her foot on something and fell in the parking lot causing injury to her right shoulder. Fracture of greater tuberosity of right humerus (07/01/25) Pt notes she caught her foot on something and fell in the parking lot causing injury to her right shoulder. Osteoporosis Cigarette smoker History of foot fracture (09/13/21) mildly displaced fracture of the base of the first metatarsal, left foot Hyperlipidemia Hypertension Arteriosclerosis of carotid artery (Acute) Cardiomyopathy, hypertrophic (Acute) Colon polyps (Acute) Internal hemorrhoids (Acute) Mitral regurgitation (Acute) Murmur (Acute) Surgical History History of colonoscopy History of hysterectomy Family History Mother Breast cancer Cerebral atherosclerosis Unknown Bipolar I disorder, single manic episode, severe with psychotic features Bipolar disorder Depression Brother Suicide Father Suicide Denies family history of Ovarian cancer Prostate cancer Coronary heart disease Myocardial infarction Colorectal cancer Social History Smoking Status: Current every day smoker Tobacco Type: Cigarettes Age Started Using Tobacco: 19; packs per day: 0.5; Cigarettes Per Day: 3; Second Hand Exposure: No; Do You Dip or Chew Tobacco: No; Tobacco Cessation Education Requested by Patient: No Hx Alcohol Use: Yes Alcohol type: hard liquor Alcohol Intake Frequency: 4 or More x per/Week Hx Substance Use: No Preferred Language: Greenlandic Communication Ability: Effective Visual Impairment: No Limitations Hearing Ability: Normal Manager Business Information Required: No Beliefs That Will Affect Care: None marital status: / Current Living Situation: Alone current occupational status: retired Other Information That Helps Us Care for You: No Feels Safe at Home: Yes Safety Concerns: Feels Safe At This Time Diet: regular caffeine: Yes (1/2 c. coffee daily) during the past year weight has: remained stable Dental Care, Regularly: Yes Physical Activity Frequency: Daily Physical Activity Frequency Comment: walk Seatbelt Use: always Sunscreen Use: Yes Assistive Devices: Denture - Upper and Glasses Assistive Devices Comment: Upper partial Review of Systems All systems reviewed & are unremarkable except as noted in HPI & below. Physical Exam . * General: Alert and oriented, no acute distress * Constitutional: well-developed, well-nourished. * Respiratory: Normal respiratory effort, no distress * Gastrointestinal: No tenderness to palpation, no rigidity or guarding. * Skin: No rash or lesion. * Neurologic: Grossly normal * Musculoskeletal: Left shoulder region with soft tissue swelling, otherwise no open wounds or other obvious deformity of the left arm. Moderate TTP of the anterior, superior, lateral shoulder region. Otherwise no tenderness of the upper arm, elbow, forearm, wrist/hand. ROM shoulder not assessed. AROM wrist flexion/extension, manganese wheeler intact. Sensation intact radial/median/ulnar nerve distribution. Brisk capillary refill. Results & Data Results & Data Laboratory Results . Diagnostic Findings . Shoulder X-Ray 07/16/25 00:45 EXAM: XR shoulder LT min 2V routine CLINICAL HISTORY: shoulder pain TECHNIQUE: X-ray images of the left shoulder were obtained in anteroposterior (AP) and Y-view projections. COMPARISON: No prior studies available for comparison. FINDINGS: Bone Structure: Displaced fracture of the surgical neck of the humerus with associated non-displaced fracture of the greater tuberosity. Joint Spaces: Glenohumeral and acromioclavicular joint spaces are normal. Possible mild glenohumeral joint effusion. Soft Tissues: Soft tissue edema of the tissues overlying the fracture. Additional Findings: No signs of osteoarthritis, bone spurs, lytic or sclerotic lesions. IMPRESSION: Displaced fracture of the surgical neck of the humerus with associated non-displaced fracture of the greater tuberosity. (3-part fracture according to Neer classification). Soft tissue edema of the tissues overlying the fracture. Possible mild glenohumeral joint effusion. Disclaimer: A subtle bone abnormality or fracture may not be readily apparent on X-rays; thus, clinical correlation and further imaging, including follow-up CT, MRI, or follow-up X-rays, are advised as needed. Electronically signed by Yfn Perez 07-16-2025 01:59 AM Chest X-Ray 07/16/25 01:23 EXAM: XR chest 1V portable CLINICAL HISTORY: Fall. TECHNIQUE: An X-ray image of the chest was obtained in AP projection. The patient was rotated. COMPARISON: Prior X-ray of the left shoulder dated 07/15/2025 was reviewed. Prior X-ray of the right shoulder dated 07/01/2025 was reviewed. FINDINGS: Pulmonary Parenchyma: Obscuration of the left lower lung zone by the enlarged cardiac silhouette. Lungs are clear bilaterally. No evidence of consolidation, collapse, or focal opacities. No pulmonary nodules are identified. No evidence of pleural effusion or pleural thickening. Heart and Mediastinum: Cardiomegaly. No mediastinal widening or masses. No hilar or mediastinal lymphadenopathy. Bony Thorax: The bony thorax appears intact without fractures or deformities. The partially visualized right shoulder demonstrates an age-indeterminate fracture of the right humeral neck, as previously noted on the prior right shoulder study dated 07/01/2025. Left Shoulder (as seen on the included field): Redemonstration of a displaced fracture of the surgical neck of the left humerus with an associated non-displaced greater tuberosity fracture. There is associated soft tissue edema. Soft Tissues: Soft tissues overlying the chest wall are unremarkable. IMPRESSION: 1. No acute cardiopulmonary abnormality. 2. Bony thorax appears intact without fractures. 3. Cardiomegaly. 4. Redemonstration of a displaced surgical neck humeral fracture. 5. Partially visualized right shoulder shows an age-indeterminate right humeral neck fracture, as noted on the prior study dated 07/01/2025. Electronically signed by Yfn Perez 07-16-2025 05:50 AM PG Care Time/CCT Total # of Minutes Spent Total Time Spent with Patient: Total time spent is greater than 50% in coordination of care (as documented) at patient's floor/unit and/or counseling patient: Coding [place] [address] IN/OBS CONSULT LVL 5,80M Patient Type Established History Problem Focused Exam Problem Focused Medical Decision Making High Complexity Diagnoses Closed left humeral fracture S42.A Encounter type: initial encounter Fracture morphology: unspecified fracture morphology Humerus Location: proximal Other closed nondisplaced fracture of proximal end of right humerus, initial encounter S42.294A Encounter type: initial encounter Fracture morphology: other fracture Fracture alignment: nondisplaced (1) Closed left humeral fracture Encounter type: initial encounter Fracture morphology: unspecified fracture morphology Humerus Location: proximal Qualified Code(s): S42.202A - Unspecified fracture of upper end of left humerus, initial encounter for closed fracture (2) Closed fracture of right proximal humerus Encounter type: initial encounter Fracture morphology: other fracture Fracture alignment: nondisplaced Qualified Code(s): S42.294A - Other nondisplaced fracture of upper end of right humerus, initial encounter for closed fracture
[2025-07-16 10:48] LABS: Hematocrit (blood only) 30.5 % (37.0-47.0); Hemoglobin 10.5 g/dL (12.0-16.0); Immature Granulocytes # (auto) 0.05 K/uL (0.01-0.20); Immature Granulocytes % (auto) 0.4 %; Mean Corpuscular Hemoglobin 33.2 pg (25.0-34.0); Mean Corpuscular Volume 96.5 fL (80.0-100.0); Platelet Count 351 K/uL (130-400); RDW Standard Deviation 46.1 fL (36.4-46.3); Red Blood Count 3.16 M/uL (4.20-5.40); White Blood Count 11.90 K/ul (4.8-10.8)
[2025-07-16 11:05] LABS: Anion Gap 8.0 (3-11); Blood Urea Nitrogen 16.0 mg/dl (6-23); Calcium 8.9 mg/dl (8.6-10.3); Carbon Dioxide 23.0 mmol/L (21-32); Chloride 108.0 mmol/L (98-107); Creatinine Clr Calc Pharmacy 102.7 ml/min; Glucose 101.0 mg/dl (70-99(Fasting)); Iron 38.0 mcg/dl (35-150); Potassium 3.6 mmol/L (3.5-5.1); Sodium 139.0 mmol/L (136-145); Total Iron Binding Cap Calc 389.0 mcg/dl (250-450); Transferrin 278.0 mg/dl (200-360); Transferrin (FE) Percent Satur 10.0 % (15-50)
[2025-07-16 11:19] LABS: Thyroid Stimulating Hormone 0.534 uIu/ml (0.300-4.500)
[2025-07-16 11:25] LABS: Ferritin 101.5 ng/ml (8-388)
[2025-07-16 11:30] LABS: Folate (Folic Acid),Ser orPlas 21.42 ng/ml (>5.38)
[2025-07-16 11:31] LABS: Vitamin B12 545.0 pg/ml (180-914)
[2025-07-16] MEDS: METOPROLOL SUCC 50MG EXT REL TAB PO SCH (12:04)
[2025-07-16] MEDS: ATORVASTATIN 20 MG TAB PO SCH (12:05)
[2025-07-16] MEDS: NICOTINE 14 MG/24 HR PATCH TD SCH (12:05)
[2025-07-16] MEDS: FOLIC ACID 1 MG in SYRINGE 9.8 ML IV SCH (12:06)
[2025-07-16] MEDS: THIAMINE HCL 100 MG in SYRINGE 9 ML IV SCH (12:06)
--- NOTE | 2025-07-16 12:09 | CT Scan Report ---
CT SCAN OF THE LEFT SHOULDER WITHOUT IV CONTRAST CLINICAL HISTORY: Humeral fracture. COMPARISON STUDY: Left shoulder x-rays dated 07/16/2025. TECHNIQUE: CT scan of the left shoulder is performed from the lower neck to the humeral shaft. Images are reviewed in the axial, sagittal, and coronal planes. IV contrast was not administered for this e xamination. 3-D reformats are created and assessed. A dose lowering technique was utilized adhering t o the principles of ALARA. CT DOSE: 372.36 mGy.cm FINDINGS: The skeletal structures are osteopenic. Again seen is a comminuted fracture of the left hum eral neck with numerous displaced fragments. There is anterior and medial displacement as well as ove rriding of the humeral shaft. The humeral head remains within the glenoid fossa. Fracture extends thr ough the humeral head with displaced fragments of the greater tuberosity. Edema/hemorrhage surrounds the fracture site. No organized hematoma is clearly seen. No scapular fracture is seen. The glenoid i s maintained. The acromioclavicular joint is preserved. The visualized left-sided ribs appear intact. Fluid is noted in the subcoracoid bursa. There is infiltration within the left axilla. No lymphadeno ba is seen. The imaged left lung parenchyma appears clear. IMPRESSION: 1. Again seen is a comminuted fracture of the left humeral head and neck as above. 2. There is anterior and medial displacement with overriding of the humeral shaft. 3. Edema/hemorrhage surround the fracture site. 4. No additional fracture is seen. ACT 112: Negative or not required by law. Dictated: 07/16/2025 9:35 AM Transcribed: 07/16/2025 9:52 AM Marvin [id number] [email or web address] Electronically signed by: Ab Velázquez M.D. 07/16/2025 12:08 PM
--- NOTE | 2025-07-16 17:16 | Hospitalist Progress Note ---
Date of Service July 16, 2025 Assessment & Plan (1) Closed left humeral fracture: (2) Alcohol use: (3) Hypokalemia: (4) Leukocytosis: (5) Anemia: Plan 75 y/o F w/ PMHx significant for closed fx of R proximal humerus and greater tuberosity of humerus (07/01/2025), OP, HLD, HTN, HCM, and MR presenting for fall and associated L shoulder pain occurring the day of arrival. Shoulder CT on 07/16 confirmed comminuted fracture of lt humeral head and neck with anterior and medial displacement with overriding of the humeral shaft - Edema/hemorrhage can be seen around fx site. #L humerus fracture - Hx OP w/ prior fx of Lt humerus 07/01/25; CXR 07/16 w/ c ardiomegaly -Ortho Consulted: ORIF of Lt proximal humerus scheduled 07/17 -L shoulder XR nondisplaced fracture of greater tuberosity of humerus with possible glenohumeral joint effusion -NPO now -IVF LR @ 80 mL/hr -Zofran prn N/V -Acetaminophen prn fever/mild pain, Oxycodone 5mg PO prn moderate/severe pain; morphine prn breakthrough pain -PT/OT consulted - appreciate assistance #Alcohol use - Routine Use, 1 glass scotch daily; 2 small glasses before fall; No hx withdraw: Ethyl ETOH 129.0 on admission -PAWS score: 1 -AWSS at admission, can discontinue as appropriate -Thiamine 100 mg IV + folate 1 mg IV am -Ativan as ordered, as needed #Hypokalemia - Asx at present. -K 3.3, Mg 2 - BMP am -KCl 20 mEq IV now -EKG prn #Leukocytosis - No infectious symptoms at present; Denies cough, F/c, URI sx, LUTS, N/V/D; 07/16 UA overall noninfectious - CBC leukocytosis 18.1, elevated neutrophils - CBC am - Deferred abx at time of admission - no clear source of infection, ? inflammatory response to fracture/stress in body #Anemia - 07/16 B12, Folate, TSH, and Iron Panel WNL -Vit D pending -Trend CBC #Nicotine dependence - 3-4 cigarettes/day with meals; Pt interested in Quitting -Encourage Cessation -Nicotine Patch PRN #HTN- Amlodipine, metoprolol - continue #HLD- Atorvastatin - continue VTE Prophylaxis: SCDs Dispo: Med/Surg Admission and Anticipated Discharge Date Admission Date: July 16, 2025 Subjective Pt was laying in bed today, mildly uncomfortable. Pt notes that she is still experiencing a good bit of pain after her fall. Discussed that she would be going to the OR tomorrow for surgical intervention of her Lt Humeral Fx which she was agreeable to. Pt otherwise without cough, congestion, sore throat, SOB, CP, Palpitations, abd pain/discomfort, N/V/D, and loss of appetite. Telemetry: Sinus 70s-80s overnight into AM. Review of Systems Review of Systems: All systems reviewed & are unremarkable except as noted in Subjective Physical Exam Physical Exam: General: Pt is a 75 y/o WD/WN F mildly uncomfortable in bed. VS: reviewed, remarkable - BP 174/78 Skin: Warm and dry; no lesions or ulcerations Respiratory: CTA bilat, no adventitious sounds noted. Chest expansion is full and symmetrical Cardio: RRR, Harsh blowing murmur present Abdomen: Round, normoactive BS x4, nontender to palpation MSK: Reduced ROM both upper extremities d/t Fx's; Lower extremities intact Neuro: A&Ox4, cooperative Results & Data Results & Data Vital Signs (Past 12 Hours) Vital Signs Temp Pulse Pulse Resp BP Pulse Ox O2 Del Method 07/16/25 15:30 84 07/16/25 08:12 76 07/16/25 08:04 98.1 F 52 L 16 174/78 H 93 Room Air 07/16/25 06:22 76 07/16/25 06:05 97.0 F L 76 17 150/71 H 94 Room Air 07/16/25 05:27 Nasal Cannula 07/16/25 05:26 65 16 152/69 H 98 Nasal Cannula O2 Flow Rate 07/16/25 15:30 07/16/25 08:12 07/16/25 08:04 07/16/25 06:22 07/16/25 06:05 07/16/25 05:27 07/16/25 05:26 2 Laboratory Results Reviewed: CBC, CMP, PT, INR, Vitamin B12, Iron Panel, Folate, TSH PG Care Time/CCT Total # of Minutes Spent Total Time Spent with Patient: Total time spent is greater than 50% in coordination of care (as documented) at patient's floor/unit and/or counseling patient: Coding Level of Care Code 88412 SUB INP/OBS CARE MIN Diagnoses Closed left humeral fracture S42.A Encounter type: initial encounter Fracture morphology: unspecified fracture morphology Humerus Location: proximal Alcohol use F10.90 Hypokalemia E87.6 Leukocytosis D72.829 Anemia D64.9 (1) Closed left humeral fracture Encounter type: initial encounter Fracture morphology: unspecified fracture morphology Humerus Location: proximal Qualified Code(s): S42.A - Unspecified fracture of upper end of left humerus, initial encounter for closed fracture
[2025-07-16] MEDS: MELATONIN 3 MG TAB PO PRN (23:47)
[2025-07-17] MEDS: MoRPHine SULFATE 2 MG/ML CARP IV PRN (01:00)
[2025-07-17 07:06] LABS: Hematocrit (blood only) 29.7 % (37.0-47.0); Hemoglobin 10.0 g/dL (12.0-16.0); Mean Corpuscular Hemoglobin 33.3 pg (25.0-34.0); Mean Corpuscular Volume 99.0 fL (80.0-100.0); Platelet Count 313 K/uL (130-400); RDW Standard Deviation 46.5 fL (36.4-46.3); Red Blood Count 3.00 M/uL (4.20-5.40); White Blood Count 10.04 K/ul (4.8-10.8)
[2025-07-17] MEDS: REMOVE NICODERM PATCH SCH (07:52)
[2025-07-17 07:54] LABS: Anion Gap 8.0 (3-11); Blood Urea Nitrogen 17.0 mg/dl (6-23); Calcium 8.6 mg/dl (8.6-10.3); Carbon Dioxide 25.0 mmol/L (21-32); Chloride 103.0 mmol/L (98-107); Creatinine Clr Calc Pharmacy 90.6 ml/min; Glucose 88.0 mg/dl (70-99(Fasting)); Potassium 3.9 mmol/L (3.5-5.1); Sodium 136.0 mmol/L (136-145)
--- NOTE | 2025-07-17 11:31 | History & Physical Bridge Note ---
Date of Service July 17, 2025 History & Physical Bridge Note I have examined the patient, reviewed the History & Physical and in the interval since the performance of the History & Physical I have noted the following changes of clinical significance: no changes noted
[2025-07-17] MEDS ORDERED: PROPOFOL IV EMULSION 10 MG/ML 20 ML VIAL IV ONE ×2 (13:12→13:42)
[2025-07-17] MEDS ORDERED: LIDOCAINE 2% 2 ML VIAL/AMP(20MG/ML) INFIL ONE ×2 (13:12→13:42)
[2025-07-17] MEDS ORDERED: ROCURONIUM BROMIDE 10 MG/ML 5 ML VIAL IV ONE ×2 (13:12→13:48)
[2025-07-17] MEDS ORDERED: MIDAZOLAM HCL 1 MG/ML 2ML VIAL ONE (13:41)
[2025-07-17] MEDS ORDERED: DEXAMETHASONE SOD INJ 4 MG/ML VIAL ONE (13:42)
[2025-07-17] MEDS ORDERED: ONDANSETRON INJ 2 MG/ML 2 ML VIAL ONE (13:42)
[2025-07-17] MEDS ORDERED: BUPIVACAINE 0.5 % 5 MG/1 ML PF 10ML VIAL ONE (13:49)
--- NOTE | 2025-07-17 13:50 | Anesthesiology Consultation ---
Date of Service July 17, 2025 Assessment & Plan Chart Review Chart Review: Acceptable Risk for Surgery and Patient NOT seen in Pre Admission Testing Consults Requested none History Surgery Operation Date: 07/17/25 08:10 Proposed Procedures p Left Proximal Humerus Open Reduction Internal Fixation - Benji Land DO Height/Weight Height: 5 ft 6 in Weight: 63.8 kg Allergies Allergy/AdvReac Type Severity Reaction Status Date / Time No Known Drug Allergies Allergy Unknown Verified 07/16/25 01:44 Medications Home Medications Medication Instructions Recorded Confirmed Last Taken fksmcajf-hehv-jyiz 8 mg-folic 400 1 tab PO DAILY 02/14/19 07/16/25 Unknown mcg-K 50 mcg-lutein 300 mcg tablet (Centrum Silver Women) ascorbate calcium (vitamin C) 500 500 mg PO DAILY 01/07/20 07/16/25 Unknown mg tablet calcium carbonate 1,000 mg PO DAILY 01/07/20 07/16/25 Unknown melatonin 1 mg tablet 1 mg PO HS 01/05/21 07/16/25 Unknown metoprolol succinate 100 mg 100 mg PO DAILY #90 tabs 12/03/24 07/16/25 Unknown tablet,extended release 24 hr atorvastatin 20 mg tablet 20 mg PO DAILY #90 tabs 02/24/25 07/16/25 Unknown amlodipine 5 mg tablet 5 mg PO DAILY #90 tabs 02/25/25 07/16/25 Unknown Active Medications Generic Name Dose Route Start Last Admin Trade Name Freq PRN Reason Stop Dose Admin Amlodipine Besylate 5 mg 07/16/25 09:00 07/17/25 07:51 Amlodipine Besylate 5 Mg Tab PO 08/15/25 08:59 5 mg DAILY ROBIN Administration Atorvastatin Calcium 20 mg 07/16/25 09:00 07/17/25 07:50 Atorvastatin 20 Mg Tab PO 08/15/25 08:59 20 mg DAILY ROBIN Administration Lactated Ringer's 1,000 mls @ 80 mls/hr 07/16/25 04:45 07/17/25 05:40 Lr IV 07/19/25 04:44 80 mls/hr .[id number] ROBIN Administration Folic Acid 1 mg/ Syringe 10 mls @ 5 mls/min 07/16/25 09:00 07/17/25 07:52 IV 08/15/25 08:59 5 mls/min QAM ROBIN Administration Thiamine HCl 100 mg/ Syringe 10 mls @ 2 mls/min 07/16/25 09:00 07/17/25 07:52 IV 08/15/25 08:59 2 mls/min QAM ROBIN Administration Melatonin 3 mg 07/16/25 04:15 07/16/25 23:47 Melatonin 3 Mg Tab PO 08/15/25 04:14 3 mg HS PRN Administration Sleep Metoprolol Succinate 100 mg 07/16/25 09:00 07/17/25 07:50 Metoprolol Succ 50mg Ext Rel Tab PO 08/15/25 08:59 100 mg DAILY ROBIN Administration Miscellaneous 1 each 07/17/25 08:59 07/17/25 07:52 Remove Nicoderm Patch N/A 08/16/25 08:58 Not Given DAILY@[id number] ROBIN Morphine Sulfate 2 mg 07/16/25 04:17 07/17/25 11:59 Morphine Sulfate 2 Mg/Ml Carp IV 07/30/25 04:16 2 mg Q3H PRN Administration Severe Pain (Scale 7, 8, 9,10) Nicotine 1 patch 07/16/25 09:00 07/17/25 07:57 Nicotine 14 Mg/24 Hr Patch TD 08/15/25 08:59 Not Given QAM ROBIN Past Family History Family History Mother Breast cancer Cerebral atherosclerosis Unknown Bipolar I disorder, single manic episode, severe with psychotic features Bipolar disorder Depression Brother Suicide Father Suicide Denies family history of Ovarian cancer Prostate cancer Coronary heart disease Myocardial infarction Colorectal cancer Past Surgical History Surgical History History of colonoscopy History of hysterectomy Social History Smoking Status: Current every day smoker Smoking cigarettes per day: 3 Do You Dip or Chew Tobacco: No Hx Alcohol Use: Yes Alcohol type: hard liquor alcohol intake frequency: 0-2 drinks per day Alcohol Intake Frequency Comment: 2 scotch and linton before bed Hx Substance Use: No Physical Exam Vital Signs Last Vital Signs Temp 36.6 C 07/17/25 11:01 Pulse 75 07/17/25 11:51 Resp 12 07/17/25 11:51 BP 173/75 H 07/17/25 11:51 Pulse Ox 92 07/17/25 11:51 O2 Del Method Room Air 07/17/25 11:51 O2 Flow Rate 2 07/16/25 05:26 Testing Laboratory Results 07/17/25 06:34 07/17/25 06:34 PT 10.2 Seconds (9.0-12.0) 07/16/25 01:22 INR 1.0 (0.9-1.1) 07/16/25 01:22 Urine Color Yellow 07/16/25 04:46 Urine Appearance Clear (Clear) 07/16/25 04:46 Urine pH 5.5 (4.5-7.5) 07/16/25 04:46 Ur Specific [place] 1.007 (1.000-1.030) 07/16/25 04:46 Urine Protein Negative (Negative) 07/16/25 04:46 Urine Glucose (UA) Negative (Negative) 07/16/25 04:46 Urine Ketones Negative (Negative) 07/16/25 04:46 Urine Nitrite Negative (Negative) 07/16/25 04:46 Ur Leukocyte Esterase 1+ (Negative) H 07/16/25 04:46 Urine WBC (Auto) 0-5 /hpf (0-5) 07/16/25 04:46 Urine RBC (Auto) 0-2 /hpf (0-2) 07/16/25 04:46 U Hyaline Cast (Auto) 0-2 /lpf (0-2) 07/16/25 04:46 U Epithel Cells (Auto) 0-2 /hpf (0-2) 07/16/25 04:46 Urine Bacteria (Auto) None Seen (None Seen) 07/16/25 04:46 Blood Type A Positive 07/16/25 20:28 Antibody Screen NEGATIVE 07/16/25 20:28
[2025-07-17] MEDS ORDERED: ATROPINE SULFATE 0.1 MG/ML 10ML SYR IV PRN (14:02)
[2025-07-17] MEDS ORDERED: ONDANSETRON INJ 2 MG/ML 2 ML VIAL IV PRN (14:02)
[2025-07-17] MEDS: TRANEXAMIC ACID / 0.7% NACL 1,000 MG/100 ML BAG IV ONE (14:13)
[2025-07-17] MEDS ORDERED: PHENYLEPHRINE HCL 10 MG/ML VIAL ONE (14:39)
[2025-07-17] MEDS ORDERED: ePHEDrine sulfate 50 MG/5 ML SYR ONE (14:49)
[2025-07-17] MEDS ORDERED: PHENYLEPHRINE 100MCG/ML 5ML SYR ONE (14:49)
[2025-07-17] MEDS: TRANEXAMIC ACID / 0.7% NACL 1000MG/100ML BAG IV ONE (15:03)
[2025-07-17] MEDS: TRANEXAMIC ACID / 0.7% NACL 1,000 MG/100 ML BAG IV SCH (15:33)
[2025-07-17] MEDS ORDERED: SUGAMMADEX SODIUM 200 MG/2 ML VIAL IV ONE (15:34)
--- NOTE | 2025-07-17 15:49 | Operative Report ---
PG Post Operative Report Pre & Post Diagnosis Operation Date: 07/17/25 08:10 Pre-Op Diagnosis: Closed comminuted left proximal humerus fracture Post-Op Diagnosis: Closed comminuted left proximal humerus fracture I identified the patient and participated in the time-out.: Yes Procedure Operation Date: 07/17/25 08:10 Actual Procedures p Left Proximal Humerus Open Reduction Internal Fixation(Left) - Benji Land DO Surgeon Benji Land DO Feeder Operator Kirit Delarosa PA-C Estimated Blood Loss 200 Findings Consistent with Post-Op Diagnosis Specimens None Description of Procedure On July 17, 2025 Kanchan was brought down from her hospital room to the preoperative holding area. The operative extremity identified and signed. She is given a preoperative antibiotic and a left interscalene nerve block. She was taken back the operative room and put under general anesthesia on the litter. She was then transferred to the hospital bed. She was then put into the beachchair position. The left shoulder was prepped and draped sterile fashion. A timeout was done. The patient and the operative extremity was prepped iden tified. A deltopectoral incision was made. Dissection was taken down through the fascia. The deltoid was retracted laterally and the conjoined tendon was retracted medially. The shoulder was exposed. Time was spent removing any hematomas and cleaning up the fracture lines. The humerus was then reduced. There was several areas of comminuted bone. Because of this I did shorten the fracture a little bit to improve healing. Once I was happy with the overall alignment of the shoulder, a Synthes proximal humeral locking plate was placed. A single compression screw was placed. Fluoroscopic images showed good alignment of the humerus and acceptable alignment of the plate. Locking screws were then placed proximally and distally. The length of the locking screws were checked on fluoroscopic imaging. The compression screw was then removed. Final fluoroscopic images showed good alignment of the fracture and all of the screws were out of the joint. The shoulder was brought through full range of motion and felt to be stable. Hemostasis was obtained. The surgical site was then irrigated by pulse lavage. The deltopectoral interval was closed with 2-0 Vicryl suture. Skin was closed with 3-0 Vicryl and a Troy Zipline. She was then placed in a Silverlon dressing and a regular arm sling. She was then extubated and transferred to a hospital bed. She was taken to the postan esthesia care unit in stable condition. She tolerated the procedure well. Kirit Delarosa PA-C, was present for the entire procedure. He was critical for patient positioning, prepping, draping, retraction exposure, wound closure and application of sterile dressing. I attest to the content of the Intraoperative Record and any orders documented therein. Any exceptions are noted below.
--- NOTE | 2025-07-17 15:55 | Fluoroscopy Report ---
FL shoulder LT min 2V CLINICAL HISTORY: LEFT PROXIMAL HUMERUS ORIF COMPARISON STUDY: CT left shoulder 07/16/2025 FLUOROSCOPY TIME: 29.0 seconds FLUOROSCOPY IMAGES: 2 EXPOSURE DOSE: 1.8806 mGy FINDINGS: Plate and screw fusion hardware fixates the acute proximal left humeral fracture. There is improved near anatomic alignment. No unexpected opaque foreign bodies are seen. IMPRESSION: Fluoroscopic assistance as above. ACT 112: Negative or not required by law. Electronically signed by: Ruddy Berrios M.D. 07/17/2025 3:54 PM
--- NOTE | 2025-07-17 16:46 | Anesthesiology Progress Note ---
Date of Service July 17, 2025 Anesthesia Post Procedure Vital Signs Vital Signs: Temp Pulse Pulse Pulse Resp BP BP 07/17/25 16:41 36.8 C 07/17/25 16:30 79 16 134/53 L 07/17/25 16:20 70 17 152/59 H 07/17/25 16:10 69 18 122/58 L 07/17/25 16:04 36.0 C L 74 18 166/68 H 07/17/25 13:47 36.9 C 75 18 160/116 H 07/17/25 12:59 73 07/17/25 11:51 75 12 173/75 H 07/17/25 11:01 36.6 C 72 18 153/60 H 07/17/25 07:30 36.7 C 73 14 175/57 H 07/17/25 05:32 70 07/17/25 04:32 36.7 C 74 20 173/72 H 07/17/25 00:53 172/54 H 07/17/25 00:09 36.6 C 74 20 190/68 H 07/16/25 23:41 195/68 H 07/16/25 21:31 82 07/16/25 20:21 36.6 C 78 20 193/68 H Pulse Ox O2 Del Method O2 Flow Rate 07/17/25 16:41 07/17/25 16:30 96 Room Air 07/17/25 16:20 96 Oxymask 5 07/17/25 16:10 97 Oxymask 5 07/17/25 16:04 97 Oxymask 5 07/17/25 13:47 93 Room Air 07/17/25 12:59 07/17/25 11:51 92 Room Air 07/17/25 11:01 92 Room Air 07/17/25 07:30 91 Room Air 07/17/25 05:32 07/17/25 04:32 93 Room Air 07/17/25 00:53 07/17/25 00:09 94 Room Air 07/16/25 23:41 07/16/25 21:31 07/16/25 20:21 94 Room Air Pain Intensity Left Shoulder: Pain Intensity: 7 Transfer of Care Handoff Completed per policy Notes Mental Status: alert / awake / arousable Patient Amnestic to Procedure: Yes Nausea / Vomiting: adequately controlled Pain: adequately controlled Airway Patency, RR, SpO2: stable & adequate BP & HR: stable & adequate Hydration State: stable & adequate Anesthetic Complications: no major complications apparent
[2025-07-17] MEDS: BUPIVACAINE LIPOSOME 1.3% 133 MG/10 ML VIAL ONE (17:58)
--- NOTE | 2025-07-17 19:22 | Hospitalist Progress Note ---
Date of Service July 17, 2025 Assessment & Plan (1) Closed left humeral fracture: (2) Alcohol use: (3) Hypokalemia: (4) Leukocytosis: (5) Anemia: Plan 75 y/o F w/ PMHx significant for closed fx of R proximal humerus and greater tuberosity of humerus (07/01/2025), OP, HLD, HTN, HCM, and MR presenting for fall and associated L shoulder pain occurring the day of arrival. Shoulder CT on 07/16 confirmed comminuted fracture of lt humeral head and neck with anterior and medial displacement with overriding of the humeral shaft - Edema/hemorrhage can be seen around fx site. #L humerus fracture - Hx OP w/ prior fx of Lt humerus 07/01/25; CXR 07/16 w/ c ardiomegaly -Ortho Consulted: ORIF of Lt proximal humerus scheduled 07/17 for 0800 -Post-op Care plan per ortho -L shoulder XR nondisplaced fracture of greater tuberosity of humerus with possible glenohumeral joint effusion -NPO now -IVF LR @ 80 mL/hr -Zofran prn N/V -Acetaminophen prn fever/mild pain, Oxycodone 5-10mg PO prn moderate/severe pain; morphine prn breakthrough pain -PT/OT consulted - appreciate assistance #Hypokalemia - Asx at present. -Trend BMP #Leukocytosis - No infectious symptoms at present; Denies cough, F/c, URI sx, JADYN TS, N/V/D; 07/16 UA overall noninfectious - CBC WNL 07/17, repeat AM #Anemia - 07/16 B12, Folate, TSH, and Iron Panel WNL; Vit D 07/17 22.3 -Vit D supplementation -Trend CBC #Alcohol use - Routine Use, 1 glass scotch daily; 2 small glasses before fall; No hx withdraw: Ethyl ETOH 129.0 on admission -PAWS score: 1 -AWSS at admission, can discontinue as appropriate -Thiamine 100 mg IV + folate 1 mg IV am -Ativan as ordered, as needed #Nicotine dependence - 3-4 cigarettes/day with meals; Pt interested in Quitting -Encourage Cessation -Nicotine Patch PRN #HTN- Amlodipine, metoprolol - continue #HLD- Atorvastatin - continue VTE Prophylaxis: SCDs Dispo: Med/Surg Admission and Anticipated Discharge Date Admission Date: July 16, 2025 Subjective Pt was laying in bed today in NAD, children at bedside (Son+daughter). Pt notes that she still is experiencing pain today. Pt denies cough, congestion, sore throat, SOB, CP, palpitations, abd pain/discomfort, N/V/D, and loss of appetite. Telemetry: Sinus 70s overnight into AM Review of Systems Review of Systems: All systems reviewed & are unremarkable except as noted in Subjective Physical Exam Physical Exam: General: Pt is a 75 y/o WD/WN F mildly uncomfortable in bed. VS: reviewed, remarkable - BP 138/70 Skin: Warm and dry; no lesions or ulcerations Respiratory: CTA bilat, no adventitious sounds noted. Chest expansion is full and symmetrical Cardio: RRR, Harsh blowing murmur present Abdomen: Round, normoactive BS x4, nontender to palpation MSK: Reduced ROM both upper extremities d/t Fx's; Lower extremities intact Neuro: A&Ox4, cooperative; sensation to upper extremities intact bilat Results & Data Results & Data Vital Signs (Past 12 Hours) Vital Signs Temp Pulse Pulse Pulse Resp BP BP 07/17/25 19:11 98.2 F 76 16 138/70 07/17/25 17:52 97.5 F L 69 14 148/75 H 07/17/25 17:22 97.9 F 69 12 138/59 L 07/17/25 16:50 98.1 F 76 12 144/80 H 07/17/25 16:41 98.2 F 07/17/25 16:30 79 16 134/53 L 07/17/25 16:20 70 17 152/59 H 07/17/25 16:10 69 18 122/58 L 07/17/25 16:04 96.8 F L 74 18 166/68 H 07/17/25 13:47 98.4 F 75 18 160/116 H 07/17/25 12:59 73 07/17/25 11:51 75 12 173/75 H 07/17/25 11:01 97.9 F 72 18 153/60 H 07/17/25 07:30 98.1 F 73 14 175/57 H Pulse Ox O2 Del Method O2 Flow Rate 07/17/25 19:11 95 Room Air 07/17/25 17:52 95 Nasal Cannula 2 07/17/25 17:22 95 Nasal Cannula 2 07/17/25 16:50 94 Nasal Cannula 2 07/17/25 16:41 07/17/25 16:30 96 Room Air 07/17/25 16:20 96 Oxymask 5 07/17/25 16:10 97 Oxymask 5 07/17/25 16:04 97 Oxymask 5 07/17/25 13:47 93 Room Air 07/17/25 12:59 07/17/25 11:51 92 Room Air 07/17/25 11:01 92 Room Air 07/17/25 07:30 91 Room Air Laboratory Results Reviewed: CBC, BMP, Vit D PG Care Time/CCT Total # of Minutes Spent Total Time Spent with Patient: Total time spent is greater than 50% in coordination of care (as documented) at patient's floor/unit and/or counseling patient: A total of 55 minutes was spent between direct patient care (30), review of chart/labs, documentation, and coordination of care. Coding Level of Care Code 00021 SUB INP/OBS CARE 3/50MIN Diagnoses Closed left humeral fracture S4 Encounter type: initial encounter Fracture morphology: unspecified fracture morphology Humerus Location: proximal Alcohol use F10.90 Hypokalemia E87.6 Leukocytosis D72.829 Anemia D64.9 (1) Closed left humeral fracture Encounter type: initial encounter Fracture morphology: unspecified fracture morphology Humerus Location: proximal Qualified Code(s): S42.A - Unspecified fracture of upper end of left humerus, initial encounter for closed fracture
[2025-07-18 07:22] LABS: Hematocrit (blood only) 26.5 % (37.0-47.0); Hemoglobin 9.4 g/dL (12.0-16.0); Mean Corpuscular Hemoglobin 34.8 pg (25.0-34.0); Mean Corpuscular Volume 98.1 fL (80.0-100.0); Platelet Count 286 K/uL (130-400); RDW Standard Deviation 44.4 fL (36.4-46.3); Red Blood Count 2.70 M/uL (4.20-5.40); White Blood Count 11.25 K/ul (4.8-10.8)
[2025-07-18 07:45] LABS: Anion Gap 9.0 (3-11); Blood Urea Nitrogen 18.0 mg/dl (6-23); Calcium 8.4 mg/dl (8.6-10.3); Carbon Dioxide 24.0 mmol/L (21-32); Chloride 102.0 mmol/L (98-107); Creatinine Clr Calc Pharmacy 81.1 ml/min; Glucose 118.0 mg/dl (70-99(Fasting)); Potassium 4.1 mmol/L (3.5-5.1); Sodium 135.0 mmol/L (136-145)
--- NOTE | 2025-07-18 08:56 | Orthopedic Progress Note ---
Date of Service July 18, 2025 Assessment & Plan (1) Closed fracture of right proximal humerus: (2) Closed left humeral fracture: Plan * Continue current treatment * S/o L humerus ORIF, also closed management R proximal humerus fx * Right proximal humerus fracture - continue close management - maintain sling, loosened to let hang to gravity - NWB RUE - ok for gentle ROM below chest level in sling * Left proximal humerus fracture - NWB LUE - ok for gentle ROM below chest level in sling * Daily treatment: Physical Therapy/ Occupational Therapy per protocol * Pain control * DVT prophylaxis, ok to resume from ortho standpoint * Disposition: TBD, anticipate return to assisted living facility * Remainder care per primary team * Will continue to follow Subjective .Active Problems: S/p L humerus ORIF, also R proximal humerus fracture closed management POD 1 75 y/o female s/p L humerus ORIF, also with R proximal humerus fracture undergoing closed management. Doing well overall, pain managed and improved function. States her left shoulder actually feels better than her right all things considered. Denies fever/chills, chest pain/SOB, nausea/vomiting. Otherwise no complaints. Review of Systems All systems reviewed & are unremarkable except as noted in HPI & below. Physical Exam . * General: Alert and oriented, no acute distress * Constitutional: well-developed, well-nourished. * Respiratory: Normal respiratory effort, no distress * Gastrointestinal: No tenderness to palpation, no rigidity or guarding. * Skin: No rash or lesion. * Neurologic: Grossly normal * Musculoskeletal: Left shoulder surgical dressing CDI, not removed for exam. Extensive ecchymosis R upper arm. Otherwise no obvious deformity or overlying skin changes. Diffuse TTP upper arm and shoulder region. Otherwise no specific tenderness of upper arm, elbow, forearm, wrist/hand. AROM shoulder not assessed. AROM elbow, wrist/hand intact. Sensation intact radial/median/ulnar nerve distributions. Brisk capillary refill. Results & Data Results & Data Laboratory Results . Diagnostic Findings . Shoulder X-Ray 07/17/25 00:00 FL shoulder LT min 2V CLINICAL HISTORY: LEFT PROXIMAL HUMERUS ORIF COMPARISON STUDY: CT left shoulder 07/16/2025 FLUOROSCOPY TIME: 29.0 seconds FLUOROSCOPY IMAGES: 2 EXPOSURE DOSE: 1.8806 mGy FINDINGS: Plate and screw fusion hardware fixates the acute proximal left humeral fracture. There is improved near anatomic alignment. No unexpected opaque foreign bodies are seen. IMPRESSION: Fluoroscopic assistance as above. ACT 112: Negative or not required by law. Electronically signed by: Ruddy Berrios M.D. 07/17/2025 3:54 PM PG Care Time/CCT Total # of Minutes Spent Total Time Spent with Patient: Total time spent is greater than 50% in coordination of care (as documented) at patient's floor/unit and/or counseling patient: Coding Level of Care Code 07815 Post Operative Follow-Up Diagnoses Other closed nondisplaced fracture of proximal end of right humerus, initial encounter S42.294A Encounter type: initial encounter Fracture alignment: nondisplaced Fracture morphology: other fracture Closed left humeral fracture S42.202A Encounter type: initial encounter Fracture morphology: unspecified fracture morphology Humerus Location: proximal (1) Closed fracture of right proximal humerus Encounter type: initial encounter Fracture alignment: nondisplaced Fracture morphology: other fracture Qualified Code(s): S42.294A - Other nondisplaced fracture of upper end of right humerus, initial encounter for closed fracture (2) Closed left humeral fracture Encounter type: initial encounter Fracture morphology: unspecified fracture morphology Humerus Location: proximal Qualified Code(s): S42.202A - Unspecified fracture of upper end of left humerus, initial encounter for closed fracture
[2025-07-18] MEDS: ACETAMINOPHEN 1,000 MG/100 ML VIAL IV PRN (09:53)
--- NOTE | 2025-07-18 14:22 | Hospitalist Progress Note ---
Date of Service July 18, 2025 Assessment & Plan (1) Closed left humeral fracture: (2) Alcohol use: (3) Hypokalemia: (4) Leukocytosis: (5) Anemia: Plan 75 y/o F w/ PMHx significant for closed fx of R proximal humerus and greater tuberosity of humerus (07/01/2025), OP, HLD, HTN, HCM, and MR presenting for fall and associated L shoulder pain occurring the day of arrival. Shoulder CT on 07/16 confirmed comminuted fracture of lt humeral head and neck with anterior and medial displacement with overriding of the humeral shaft - Edema/hemorrhage can be seen around fx site. #L humerus fracture - Hx OP w/ prior fx of Lt humerus 07/01/25; CXR 07/16 w/ c ardiomegaly -Ortho Consulted: ORIF of Lt proximal humerus scheduled 07/17 for 0800 -Post-op Care plan per ortho -L shoulder XR nondisplaced fracture of greater tuberosity of humerus with possible glenohumeral joint effusion -Diet Regular -D/C IVF -Zofran prn N/V -Acetaminophen prn fever/mild pain, Oxycodone 5-10mg PO prn moderate/severe pain; morphine prn breakthrough pain #Hypokalemia - Asx at present. -Trend BMP #Leukocytosis - No infectious symptoms at present; Denies cough, F/c, URI sx, LUTS, N/V/D; 07/16 UA overall noninfectious - CBC WNL 07/17, repeat AM #Anemia - 07/16 B12, Folate, TSH, and Iron Panel WNL; Vit D 07/17 22.3 -Vit D supplementation -Trend CBC #Alcohol use - Routine Use, 1 glass scotch daily; 2 small glasses before fall; No hx withdraw: Ethyl ETOH 129.0 on admission -PAWS score: 0 -Thiamine 100 mg IV + folate 1 mg IV am -Ativan as ordered, as needed #Nicotine dependence - 3-4 cigarettes/day with meals; Pt interested in Quitting -Encourage Cessation -Nicotine Patch PRN #HTN- Amlodipine, metoprolol - continue #HLD- Atorvastatin - continue VTE Prophylaxis: Lovenox Dispo: Med/Surg - PT/OT rec acute rehab; plan on d/c AM 07/19 Admission and Anticipated Discharge Date Admission Date: July 16, 2025 Subjective Pt is sitting at bedside, daughter and son present. Pt states that she is feeling much better today and is managing her pain primarily with tylenol. She notes that she is eager to leave. Daughter notes that they discussed goign [facility] already and would just need to have the insurance authorization sent. The current goal is for patient to be discharged in the AM so that she can go to [facility] for acute rehab therapy. Pt denies cough, congestion, sore throat, SOB, CP, Palpitations, abd pain/discomfort, N/V/D and loss of appetite. Telemetry: Sinus 70s overnight into AM Review of Systems Review of Systems: All systems reviewed & are unremarkable except as noted in Subjective Physical Exam Physical Exam: General: Pt is a 75 y/o WD/WN F mildly uncomfortable in bed. VS: reviewed, remarkable - BP 138/70 Secondary Trauma Survey: General: - Alert: Yes - Oriented: Yes - GCS 15: Yes HEENT: - No pain/tenderness. - No lacerations/abrasions - No numbness/tingling - PERLAA. Normal Visual Acuity. No visua l field cuts. No nystagmus. Wears Glasses, No contact lenses. Normal hearing. No relative afferent pupillary defect. No facial asymmetry. Normal palatal elevation, uvula midline. Midline tongue protrusion. Shoulder shrug with 5/5 strength bilaterally. - Mucous membranes moist. Neck: - Midline Tenderness: No - Cleared C-Spine: Yes - Pt able to look Lt and Rt w/out diffic ulty Thorax: - Pain/Tenderness: None - Lacerations/Abrasions: None - Swelling/Ecchymosis: None - Air/Bony Crepitus: None Cardiopulmonary: - Regular Rate and Rhythm. Harsh blowing murmur present (WNL - per pt history), no rubs or gallops. - Breath sounds CTAB. No wheezes, rales, or rhonchi. - Symmetrical Chest Rise Abdomen - Pain/Tenderness: None - Lacerations/Abrasions: None - No abdominal distension - Abdominal rigidity/guarding: None - Bowel Sounds: Present, normal - Pelvis stable Back/Spine - Lacerations/Abrasions: None - Swelling/Ecchymosis: None - Pain/Tenderness: None - Step-offs: None Extremities: - RUE: Pt in arm sling d/t recent fx. Ar m is with expected pain/tenderness. Pt restricted from ROM of upper extremity d/t fx; ROM of wrist & elbow intact; Pug Mill Operator strength intact with 5/5 strength, Pt able to bend elbow; Sensation intact to soft touch without deficit. Radial pulse intact, cap refill in the thumb <2 seconds. - LUE: Pt in arm sling d/t recent fx as well as ORIF of proximal humerus d/t fx. A dressing can be seen on Proximal LUE, pt is tender. ROM wrist & elbow intact. Pt restricted from ROM of upper extremity. Pug Mill Operator strength intact with 5/5 strength. Sensation intact to soft touch without deficit. Radial pulse intact, cap refill in the thumb <2 seconds. - LLE: No deformity. No lacerations/isidra sions. No swelling/ecchymosis. No pain/tenderness. Full active and passive range of motion. Hip flexion/extension, knee flexion/extension, ankle dorsiflexion/plantarflexion with 5/5 strength. Sensation intact to soft touch without deficit. PT pulse intact to palpation, cap refill in the hallux <2 seconds. - RLE: No deformity. No lacerations/isidra sions. No swelling/ecchymosis. No pain/tenderness. Full active and passive range of motion. Hip flexion/extension, knee flexion/extension, ankle dorsiflexion/plantarflexion with 5/5 strength. Sensation intact to soft touch without deficit. PT pulse intact to palpation, cap refill in the hallux <2 seconds. Mental status Adequate for Full Exam: Yes C-Spine Cleared (Clinically): Yes Results & Data Results & Data Vital Signs (Past 12 Hours) Vital Signs Temp Pulse Resp BP Pulse Ox Pulse Ox Pulse Ox 07/18/25 11:21 95 07/18/25 11:17 97.9 F 69 20 149/84 H 96 07/18/25 08:01 98.2 F 74 20 133/70 96 07/18/25 04:00 95 Pulse Ox O2 Del Method O2 Del Method O2 Flow Rate O2 Flow Rate O2 Flow Rate 07/18/25 11:21 93 0 0 07/18/25 11:17 Room Air 07/18/25 08:01 Nasal Cannula 2 07/18/25 04:00 Room Air Laboratory Results Reviewed: CBC, BMP PG Care Time/CCT Total # of Minutes Spent Total Time Spent with Patient: Total time spent is greater than 50% in coordination of care (as documented) at patient's floor/unit and/or counseling patient: Total time 100 minutes between direct pt care (60 minutes), documentation, review of charts, review and interpretation of labs, and coordination of care. Coding Level of Care Code 55169 SUB INP/OBS CARE 3/50MIN Diagnoses Closed left humeral fracture S42. Encounter type: initial encounter Fracture morphology: unspecified fracture morphology Humerus Location: proximal Alcohol use F10.90 Hypokalemia E87.6 Leukocytosis D72.829 Anemia D64.9 (1) Closed left humeral fracture Encounter type: initial encounter Fracture morphology: unspecified fracture morphology Humerus Location: proximal Qualified Code(s): S42.A - Unspecified fracture of upper end of left humerus, initial encounter for closed fracture
[2025-07-19 03:52] VITALS: RESP 18
--- NOTE | 2025-07-19 07:32 | Orthopedic Progress Note ---
Date of Service July 19, 2025 Assessment & Plan (1) Left humeral fracture: Overall she is doing fairly well with regards to pain. She is wearing 2 slings. She will be in the sling's for maximum of 6 weeks. Will see how the x-rays look in the office to see if we can shorten her stay in the sling's. She is orthopedically stable for discharge to [facility] today. She will follow- up with orthopedics in 2 weeks. Subjective Kanchan was seen and examined at bedside this morning. Overall she is doing fairly well. She is not having much pain in the left shoulder. She is wearing 2 sling as instructed. She has no other complaints.. Review of Systems All systems reviewed & are unremarkable except as noted in HPI & below. Physical Exam On physical exam of the left shoulder, the dressing is clean and dry. She is wearing a sling as instructed. She has a sling on her other shoulder as well. She has active motion of her hand and her wrist.. Results & Data Results & Data Laboratory Results . Diagnostic Findings . PG Care Time/CCT Total # of Minutes Spent Total Time Spent with Patient: Total time spent is greater than 50% in coordination of care (as documented) at patient's floor/unit and/or counseling patient: Coding Level of Care Code 38821 Post Operative Follow-Up Diagnoses Left humeral fracture S42.302A
[2025-07-19] MEDS: ENOXAPARIN INJ 40 MG/0.4 ML SYR SQ SCH (08:56)
--- NOTE | 2025-07-19 21:15 | Hospitalist Progress Note ---
Date of Service July 19, 2025 Assessment & Plan (1) Closed left humeral fracture: (2) Alcohol use: (3) Hypokalemia: (4) Leukocytosis: (5) Anemia: Plan 75 y/o F w/ PMHx significant for closed fx of R proximal humerus and greater tuberosity of humerus (07/01/2025), OP, HLD, HTN, HCM, and MR presenting for fall and associated L shoulder pain occurring the day of arrival. Shoulder CT on 07/16 confirmed comminuted fracture of lt humeral head and neck with anterior and medial displacement with overriding of the humeral shaft - Edema/hemorrhage can be seen around fx site. #L humerus fracture - Hx OP w/ prior fx of Lt humerus 07/01/25; CXR 07/16 w/ c ardiomegaly -Ortho Consulted: ORIF of Lt proximal humerus scheduled 07/17 for 0800 -Post-op Care plan per ortho -L shoulder XR nondisplaced fracture of greater tuberosity of humerus with possible glenohumeral joint effusion -Diet Regular -D/C IVF -Zofran prn N/V -Acetaminophen prn fever/mild pain, Oxycodone 5-10mg PO prn moderate/severe pain; morphine prn breakthrough pain - patient with mild bump in white blood cells today checked Pro-Ceasar was negative #Hypokalemia - Asx at present. -Trend BMP #Leukocytosis - No infectious symptoms at present; Denies cough, F/c, URI sx, LUTS, N/V/D; 07/16 UA overall noninfectious - CBC WNL 07/17, repeat AM #Anemia - 07/16 B12, Folate, TSH, and Iron Panel WNL; Vit D 07/17 22.3 -Vit D supplementation -Trend CBC #Alcohol use - Routine Use, 1 glass scotch daily; 2 small glasses before fall; No hx withdraw: Ethyl ETOH 129.0 on admission -PAWS score: 0 -Thiamine 100 mg IV + folate 1 mg IV am -Ativan as ordered, as needed #Nicotine dependence - 3-4 cigarettes/day with meals; Pt interested in Quitting -Encourage Cessation -Nicotine Patch PRN #HTN- Amlodipine, metoprolol - continue #HLD- Atorvastatin - continue VTE Prophylaxis: Lovenox Dispo: Med/Surg - PT/OT rec acute rehab; plan on d/c AM 07/19 Admission and Anticipated Discharge Date Admission Date: July 16, 2025 Subjective patient states she is excited to go to [facility] and has no problems or complaints today. Patient denies cough, congestion, sore throat, shortness of breath, chest pain, palpitations, abdominal pain, nausea, vomiting, diarrhea, constipation, loss of appetite. Review of Systems Review of Systems: All systems reviewed & are unremarkable except as noted in Subjective Physical Exam Physical Exam: General: Pt is a 75 y/o WD/WN F mildly uncomfortable in bed. VS: reviewed, remarkable - BP 147/65 Skin: Warm and dry; no lesions or ulcerations Respiratory: CTA bilat, no adventitious sounds noted. Chest expansion is full and symmetrical Cardio: RRR, Harsh blowing murmur present Abdomen: Round, normoactive BS x4, nontender to palpation MSK: Reduced ROM both upper extremities d/t Fx's; Lower extremities intact Neuro: A&Ox4, cooperative; sensation to upper extremities intact bilat Results & Data Results & Data Vital Signs (Past 12 Hours) Vital Signs Temp Pulse Resp BP Pulse Ox O2 Del Method 07/19/25 16:04 98.2 F 73 18 147/65 H 92 Room Air Laboratory Results Reviewed: Procalcitonin, negative PG Care Time/CCT Total # of Minutes Spent Total Time Spent with Patient: Total time spent is greater than 50% in coordination of care (as documented) at patient's floor/unit and/or counseling patient: Coding Level of Care Code 04018 SUB INP/OBS CARE 2/35MIN Diagnoses Closed left humeral fracture S4. Encounter type: initial encounter Fracture morphology: unspecified fracture morphology Humerus Location: proximal Alcohol use F10.90 Hypokalemia E87.6 Leukocytosis D72.829 Anemia D64.9 (1) Closed left humeral fracture Encounter type: initial encounter Fracture morphology: unspecified fracture morphology Humerus Location: proximal Qualified Code(s): S42.A - Unspecified fracture of upper end of left humerus, initial encounter for closed fracture
[2025-07-20 07:39] VITALS: BP 124/61; TEMP 98.1; O2SAT 93
--- NOTE | 2025-07-20 09:18 | Discharge Summary ---
Discharge Summary Date of Service July 20, 2025 Principal Dx & Hospital Course #1 = Principal Diagnosis (1) Closed left humeral fracture: (2) Alcohol use: (3) Hypokalemia: (4) Leukocytosis: (5) Anemia: Plan #L humerus fracture - 75 y/o F w/ PMHx significant for closed fx of R proximal humerus and greater tuberosity of humerus (07/01/2025), OP, HLD, HTN, HCM, and MR presenting for fall and associated L shoulder pain occurring the day of arrival. Shoulder CT on 07/16 confirmed comminuted fracture of lt humeral head and neck with anterior and medial displacement with overriding of the humeral shaft - Edema/hemorrhage seen around fx site. Orthopedics was consulted and an ORIF was done on 07/17. D/t recent R humerus fx and new L humerus fx, it is recommended that pt attends acute rehab, which will be done at [facility]. Pt can manage her pain with Tylenol as needed. A prescription of Oxycodone 5mg will also be sent and can be used as needed for pain that is not managed by Tylenol. #Hypokalemia - RESOLVED, so sx during inpatient hospitalization #Leukocytosis - No infectious symptoms at present; Denies cough, F/c, URI sx, LUTS, N/V/D; 07/16 UA overall noninfectious; Pt had minor bump in WBCs 07/18 to 11.25 which resolved on 07/20; Procalcitonin on 07/19 & 07/20 were both negative, reassuring that it is unlikely for a bacterial infection to be present #Anemia - 07/16 B12, Folate, TSH, and Iron Panel WNL; Vit D 07/17 22.3; Pt encouraged to get OTC Vitamin D supplementation #Alcohol use - Routine Use, 1 glass scotch daily; 2 small glasses before fall; No hx withdraw: Ethyl ETOH 129.0 on admission; no concerns during admission #Nicotine dependence - 3-4 cigarettes/day with meals; Pt interested in Quitting, received nicotine patches while inpatient. Pt encouraged to quit smoking #HTN- Amlodipine, metoprolol - continue #HLD- Atorvastatin - continue Dispo: [facility], rehab Admission HPI Per Admitting Provider 75-year-old female PMHx closed fx of R proximal humerus and greater tuberosity of humerus (07/01/2025), OP, HLD, HTN, HCM, and MR presenting for fall and associated L shoulder pain occurring the day of arrival. Patient states that around the time of she was with her [id number] when they were outside walking and she tripped off of a curb while it was raining, landing on her right arm and sustaining a fracture. She was then sent to [facility] for rehabilitation but she is right-hand dominant and needed assistance given her injury. While at [facility], she has been having approximately 1 glass of liquor per night. The night of arrival, around [id number], she had finished 2 glasses of scotch mixed with water (she holds up her hand to demonstrate small glasses that resemble the size of shot glasses). She got up with only her socks on and walked to the bathroom when she then slipped on the vinyl floor and fell onto her left side, falling backwards. She did not hit her head. Not on blood thinners. At present, the pain in her L arm is a 5 out of 10 on the pain scale, but manageable. She is not having any numbness or tingling, no shooting pain elsewhere. She denies any symptoms prior to the fall to include chest pain, dizziness, SOB, or syncope. She admits to drinking almost nightly, around a shot glass amount of liquor mixed with water. Denies blackouts, history of withdrawals, seizures, or inpatient treatment for alcohol use. She does smoke cigarettes, approximately 3-4/day. She has been having more stressors recently as she has been a since 2013, and her mother just recently passed in June at the age of 103 years old. Patient states that there have just been changes in her life that she is dealing with and she was feeling sad the night of arrival which is why she had 2 glasses of alcohol instead of 1. She denies any chest pain, SOB, palpitations, abdominal pain, N/V/D/C, numbness/tingling, fever/chills, URI symptoms, LUTS, weakness, or syncope. Her RUE has been healing appropriately, she states that the pain in this arm is manageable. ED evaluation reveals CBC with leukocytosis 18.10, H/H 11.0/32.1, plt stable; PT/INR WNL; CMP K 3.3, AG 13, ratio 33.9, glucose 116; L shoulder XR displaced fracture of surgical neck of humerus with associated non-displaced fx greater tuberosity, soft tissue edema overlying fx, possible glenohumeral joint effusion; CXR pending official read.; Provided with 1L NSS in ED. Please see Dr. Horan attestation for adjustments/additions to treatment plan. Discharge Plan Discharge Items Patient Disposition: Transfer Inpatient Rehab Fac Reason For Visit: L HUMERUS FX, HYPOKALEMIA Discharge Diagnosis: L Humerus fx Condition on Discharge: Fair Activity: Per Instructions section Weightbearing: Left non-weightbearing and Right non-weightbearing Non-emergency contact: Surgeon Call non-emergency contact if: your symptoms worsen, your temperature is above 101.5, your wound has increased redness and your wound has increased drainage Follow-up/Referrals: Benji Land DO [Physician] - Daiana Razo MD [Primary Care Provider] - (within 1 week of d/c from [facility]) Diet: Regular Addtl Attending Provider Instructions: Hospital Course: You were admitted to the hospital after fracturing your left humerus. A shoulder CT scan done on 07/16 confirmed a fracture of the left humerus that required surgical intervention. Orthopedics was consulted and performed surgery to correct the fracture on 07/17. Recently you additionally had a right humerus fracture, as a result it was deemed appropriate that you should attend acute rehab with [facility]. Your medication list will be shared with [facility] and your medications continued. Discharge Instructions: -Please continue home meds as prescribed. -New medications of vitamin D supplement and oxycodone will be sent for you, please take as prescribed -You should follow-up with your surgical team, instructions on how to do that were listed below -Please follow-up with your family doctor within 1 week of discharge -If you have any questions or concerns please reach out to your surgical team or your PCP Medications: Your medication list has been reviewed and reconciled upon discharge to ensure accuracy and continuity of care. An updated list of all your medications is included with your hospital discharge paperwork. Please review this list closel y, and make note of any changes. --- We sent a new medication called Oxycodone to your pharmacy. Take as needed for pain, especially with therapy sessions. --- You are encouraged to continue Vitamin D supplementation, you were discovered to have low vitamin D while you were in the hospital Take your medications as instructed; do not skip a dose of your medicines. Make sure all of your doctors know every medicine you are taking (including ugnn-ocf-egldibk medicines, vitamins, and supplements). Call your primary care provider before taking any new medicines (including over- the-counter medicines, vitamins, and supplements), because some of these may interact with your current medications, or may make your symptoms worse. Tell your primary care provider if you cannot afford your medications. Activity: You can do normal everyday activities as your body allows. Take rest breaks if you feel tired. Do not overexert. Stop activity if you have pain, shortness of breath or feel dizzy. Follow-up appointments: Make an appointment with your primary care physician within one week of discharge. A copy of this summary will be sent to them. Every time you see your primary care physician, or any other doctor, bring your medication list, and a list of questions. CONTACT YOUR PRIMARY CARE PROVIDER if you experience any of the following: Shortness of breath or difficulty breathing Fevers or chills Feeling tired with normal activity or experiencing dizziness or fainting Difficulty following your treatment plan, or difficulty taking medications CALL 911 OR GO TO THE EMERGENCY DEPARTMENT if you experience any of the following: Severe abdominal pain or nausea/vomiting Severe chest pain, or chest pain that radiates (moves) to your jaw or arm Sudden, severe shortness of breath or difficulty breathing Thank you for allowing us to participate in your care. Addtl International Marketing Specialist Provider Instructions: General Orthopedic Discharge Instructions Activity: NWB b/l UE Diet: You may resume previous diet. Medications: 1. Narcotic You will likely be sent home from the hospital with a prescription for the narcotic pain medication. Take it as needed. Side effects most commonly include nausea and constipation 2. Resume previous home medications unless otherwise instructed Dressing Care: If there is a soft dressing in place then leave the dressing intact for 5 days. On the you may remove the dressing and leave the stitches open to air or cover them with band-aids. Keep the incision clean and dry If there is a hard splint then leave it in place until your follow-up visit in 2 weeks Showering: If you have a soft dressing you may shower right after the surgery but do not get the dressing wet. After the dressing is removed on the 5th day then you can get the stitches wet in the shower, but do not soak or scrub them. Let the soapy shower water run over the stitches and pat them dry. If you have a hard splint, cover it in a plastic bag and keep it dry. Do not remove it until the follow up appointment. Things To Watch For: 1. Drainage from the incision site that occurs more than one week after your surgery. 2. Increased redness at the incision site. 3. Fever above 102 degrees Fahrenheit. 4. Unusual chest pain or shortness of breath. 5. Call [facility] at with any of the above problems. Follow-Up Visit: Please make arrangements to follow-up with Dr. Land team approximately 2 weeks after your day of surgery for progress check and staple/suture removal. If you have any questions call Pending Studies at Discharge: No Stand-Alone Forms: My [facility] Skilled Items Patient informed of condition?: Yes DNR: No Discharge Level of Care: Acute rehab Communicable Disease: No Discharge Prognosis: Stable Lines: None Urinary Catheter: No Medications and DC Order Prescriptions: No Action metoprolol succinate 100 mg tablet extended release 24 hr 100 mg PO DAILY Qty: 90 3RF atorvastatin 20 mg tablet 20 mg PO DAILY Qty: 90 3RF amlodipine 5 mg tablet 5 mg PO DAILY Qty: 90 3RF calcium carbonate 500 mg calcium (1,250 mg) tablet 1,000 mg PO DAILY Centrum Silver Women 8 mg iron-400 mcg-300 mcg tablet 1 tab PO DAILY ascorbate calcium (vitamin C) 500 mg tablet 500 mg PO DAILY melatonin 1 mg tablet 1 mg PO HS Discharge Orders: Discharge Order (Routine); Ordered 07/20/25 Ordered By: Lashae Rosas Admission Data Admit Date/Time: 07/16/25 04:15 Attending Provider: Kemar Mcmahon Admit Provider: Johan Horan Primary Care Provider: Daiana Razo [facility]; Gianni Arias; Johan Horan Hospital Stay Data Consultations 07/16/25 01:57 Consult Orthopedic Surgery Routine 07/16/25 03:07 ED Decision to Admit Stat Procedures Performed Operation Date: 07/17/25 08:10 Actual Procedures p Left Proximal Humerus Open Reduction Internal Fixation(Left) - Benji Land, Diagnostic Imagining Performed 07/16/25 07:18 CT shoulder LT wo con Stat 07/17/25 FL shoulder LT min 2V Routine 07/17/25 13:57 US - OR guided needle placemen Stat Discharge Instructions Given to Patient (Per Discharging Provider) Hospital Course: You were admitted to the hospital after fracturing your left humerus. A shoulder CT scan done on 07/16 confirmed a fracture of the left humerus that required surgical intervention. Orthopedics was consulted and performed surgery to correct the fracture on 07/17. Recently you additionally had a right humerus fracture, as a result it was deemed appropriate that you should attend acute rehab with [facility]. Your medication list will be shared with [facility] and your medications continued. Discharge Instructions: -Please continue home meds as prescribed. -New medications of vitamin D supplement and oxycodone will be sent for you, please take as prescribed -You should follow-up with your surgical team, instructions on how to do that were listed below -Please follow-up with your family doctor within 1 week of discharge -If you have any questions or concerns please reach out to your surgical team or your PCP Medications: Your medication list has been reviewed and reconciled upon discharge to ensure accuracy and continuity of care. An updated list of all your medications is included with your hospital discharge paperwork. Please review this list closely, and make note of any changes. --- We sent a new medication called Oxycodone to your pharmacy. Take as needed for pain, especially with therapy sessions. --- You are encouraged to continue Vitamin D supplementation, you were discovered to have low vitamin D while you were in the hospital Take your medications as instructed; do not skip a dose of your medicines. Make sure all of your doctors know every medicine you are taking (including filu-oiw-lugmrqs medicines, vitamins, and supplements). Call your primary care provider before taking any new medicines (including over- the-counter medicines, vitamins, and supplements), because some of these may interact with your current medications, or may make your symptoms worse. Tell your primary care provider if you cannot afford your medications. Activity: You can do normal everyday activities as your body allows. Take rest breaks if you feel tired. Do not overexert. Stop activity if you have pain, shortness of breath or feel dizzy. Follow-up appointments: Make an appointment with your primary care physician within one week of discharge. A copy of this summary will be sent to them. Every time you see your primary care physician, or any other doctor, bring your medication list, and a list of questions. CONTACT YOUR PRIMARY CARE PROVIDER if you experience any of the following: Shortness of breath or difficulty breathing Fevers or chills Feeling tired with normal activity or experiencing dizziness or fainting Difficulty following your treatment plan, or difficulty taking medications CALL 911 OR GO TO THE EMERGENCY DEPARTMENT if you experience any of the following: Severe abdominal pain or nausea/vomiting Severe chest pain, or chest pain that radiates (moves) to your jaw or arm Sudden, severe shortness of breath or difficulty breathing Thank you for allowing us to participate in your care. Total Time Total Time Spent Total Time Spent (In Minutes): Time spent day of discharge 45 minutes including direct patient care, medication reconciliation, documentation, review of labs and images, and coordination of care. Coding Level of Care Code 18066 INP/OBS DISCH >30 MIN Diagnoses Closed left humeral fracture S42.A Encounter type: initial encounter Fracture morphology: unspecified fracture morphology Humerus Location: proximal Alcohol use F10.90 Hypokalemia E87.6 Leukocytosis D72.829 Anemia D64.9
[2025-07-20 09:42] LABS: Hematocrit (blood only) 30.9 % (37.0-47.0); Hemoglobin 10.5 g/dL (12.0-16.0); Immature Granulocytes # (auto) 0.04 K/uL (0.01-0.20); Immature Granulocytes % (auto) 0.4 %; Mean Corpuscular Hemoglobin 33.5 pg (25.0-34.0); Mean Corpuscular Volume 98.7 fL (80.0-100.0); Platelet Count 331 K/uL (130-400); RDW Standard Deviation 45.5 fL (36.4-46.3); Red Blood Count 3.13 M/uL (4.20-5.40); White Blood Count 9.78 K/ul (4.8-10.8)
[2025-07-20 09:59] LABS: Anion Gap 9.0 (3-11); Blood Urea Nitrogen 16.0 mg/dl (6-23); Calcium 9.0 mg/dl (8.6-10.3); Carbon Dioxide 25.0 mmol/L (21-32); Chloride 102.0 mmol/L (98-107); Creatinine Clr Calc Pharmacy 92.4 ml/min; Potassium 3.7 mmol/L (3.5-5.1); Sodium 136.0 mmol/L (136-145)
[2025-07-20 10:36] VITALS: PULSE 79
[2025-07-20] MEDS: CHOLECALCIFEROL 125 MCG (5,000 UNITS) TAB PO SCH (10:44)
--- NOTE | 2025-07-22 13:18 | Coding Query ---
ANEMIA To promote full compliance with coding requirements relating to patient care, physician participation is requested in all cases of economics faculty member uncertainty. Please assist us with the question(s) below: Coding Question(s): The record reflects the patient has Anemia. Please specify the known or suspected type by placing an "X" within the parenthesis (x). If other, please document type. Examples are: ( ) Acute blood loss anemia (X) Acute Postoperative blood loss anemia ( ) Acute postoperative anemia due to dilutional fluids ( ) Chronic blood loss anemia ( ) Anemia of chronic disease ( ) Aplastic anemia ( ) Anemia due to renal disease ( ) Anemia in neoplastic disease ( ) Iron deficient anemia ( ) Anemia, unspecified or other ( ) Other: (please specify) NOTE: Anemia was present on admission, prior to procedure so not post-operative. Iron and vitamin studies did not result in a confirmed diagnosis. There was no evidence of blood loss or bleeding. Further testing and evaluation in the outpatient setting will be needed to assess the source or the anemia. Thank you Renea TORRES
--- NOTE | 2025-07-22 13:20 | Coding Query ---
To promote full compliance with coding requirements relating to patient care, physician participation is requested in all cases of clinical coder uncertainty. Please assist us with the question(s) below: Coding Question(s): It was noted throughout the record that the patient has/is suspected to have osteoporosis. According to coding guidelines "a code for osteoporotic fracture, and not a traumatic fracture, should be used for any patient with known osteoporosis who suffers a fracture, even if the patient had a minor fall or trauma, if that fall or trauma would not usually break a normal, healthy bone." Please indicate below the type of fracture: Physician's Response(s): ( X ) Osteoporotic fracture of Left Proximal Humerus ( ) Traumatic fracture of Left Proximal Humerus ( ) Other, please specify ( X ) Osteoporotic fracture of Right Proximal Humerus ( ) Traumatic fracture of Right Proximal Humerus ( ) Other, please specify She had a documented history of osteopenia, now with a pathologic fracture confirming the Dx of osteoporosis. Follow-up studies will confirm. BRIAN
--- NOTE | 2025-07-25 05:44 | Electrocardiogram Report ---
Test Reason : Blood Pressure : */* mmHG Vent. Rate : 76 BPM Atrial Rate : 76 BPM P-R Int : 176 ms QRS Dur : 100 ms QT Int : 422 ms P-R-T Axes : 45 5 133 degrees QTcB Int : 474 ms Poor data quality, interpretation may be adversely affected Normal sinus rhythm Left ventricular hypertrophy with repolarization abnormality ( R in aVL , Paras product ) Abnormal ECG No previous ECGs available Confirmed by Andrea Chester ([id number]) on 07/25/2025 5:44:11 AM Referred By: TARA Templeton Confirmed By: Andrea Chester
== END 2025-07-20 14:17 | DRG 493 ==
LOC: ED 00:24 → 2W 04:15 → SUATTDRO 04:15 → 2W 05:27